=== PATIENT | female | born 1980 | race Two or more races ===

== ENCOUNTER 2016-08-12 16:50 | Observation (INO) | payer SELFPAY | END 2016-08-12 17:15 | disposition home or self-care (01) | DRG 782 | LOC: LDRP 16:50 | PROVIDERS: ADMIT Obstetrics & Gynecology; ATTEND Obstetrics & Gynecology | DX: O62.9 Abnormality of forces of labor, unspecified (principal); O48.0 Post-term pregnancy; Z3A.40 40 weeks gestation of pregnancy | CPT/HCPCS: 76818; G0378; 59025; 81002 ==

== ENCOUNTER 2019-02-18 00:11 | Observation (INO) | payer MEDICAID | END 2019-02-18 01:11 | disposition home or self-care (01) | DRG 566 | LOC: LDRP 00:11 | PROVIDERS: ADMIT Obstetrics & Gynecology; ATTEND Obstetrics & Gynecology | DX: O26.892 Other specified pregnancy related conditions, second trimester (principal); M54.5 Low back pain; M54.9 Dorsalgia, unspecified; N89.8 Other specified noninflammatory disorders of vagina; Z3A.25 25 weeks gestation of pregnancy | CPT/HCPCS: 59025; 81002; G0378 ==

== ENCOUNTER 2019-03-16 11:40 | Observation (INO) | payer MEDICAID ==
[2019-03-16] MEDS ORDERED: LACTATED RINGER'S 1,000 ML IV ONE (14:02)
[2019-03-16] MEDS ORDERED: TERBUTALINE SULFATE 1 MG/ML 1ML VIAL SC ONE ×2 (14:09→14:15)
[2019-03-16] MEDS ORDERED: PREN-129 OR (15:02)
== END 2019-03-16 15:55 | disposition home or self-care (01) | DRG 815 ==
LOC: LDRP 11:40
PROVIDERS: ADMIT Specialist; ATTEND Specialist
DX: Z04.3 Encounter for examination and observation following other accident (principal); O09.523 Supervision of elderly multigravida, third trimester; Z3A.29 29 weeks gestation of pregnancy
CPT/HCPCS: 59025; 76815; 81002; 96372; G0378; J3105; 96360

== ENCOUNTER 2019-03-16 16:09 | Emergency (ER) | payer MEDICAID ==
[~2019-03-16] VITALS: Ht 157.5 cm; Wt 71.2 kg
[~2019-03-16 16:09] MED LIST: PREN-129 OR
[2019-03-16 16:20] VITALS: BP 119/50
== END 2019-03-16 16:23 | disposition left against medical advice (07) ==
LOC: ER 16:09
DX: Z04.1 Encounter for examination and observation following transport accident (principal); Z53.21 Procedure and treatment not carried out due to patient leaving prior to being seen by health care provider

== ENCOUNTER 2019-05-11 05:25 | Inpatient (IN) | payer MEDICAID ==
[~2019-05-11] VITALS: Ht 157.5 cm; Wt 74.8 kg
[2019-05-11] MEDS ORDERED: LACTATED RINGER'S 1,000 ML IV SCH ×2 (06:33→07:17)
[2019-05-11] MEDS ORDERED: DERMOPLAST 60ML BOTTLE TOP PRN (06:45)
[2019-05-11] MEDS ORDERED: LIDOCAINE 2%HCL (LOCAL ANESTH.) INJ 20ML MDV ID ONE (06:45)
[2019-05-11] MEDS ORDERED: WITCH HAZEL-GLYCERIN PAD TOP PRN (06:45)
[2019-05-11] MEDS ORDERED: LIDOCAINE 1% (LOCAL ANESTH.) PF 5ml SDV IJ ONE (06:45)
[2019-05-11] MEDS ORDERED: PHISODERM TOP SOLN 240ML BTL TOP PRN (06:45)
[2019-05-11] MEDS ORDERED: PENICILLIN G POT 5MIL/D5 50ML 50 ML IV ONE (06:45)
[2019-05-11] MEDS ORDERED: NALBUPHINE HCL 10 MG/1ml INJECTION IV PRN (06:45)
[2019-05-11] MEDS ORDERED: CARBOPROST TROMETHAMINE 250 MCG/1ML VIAL IM PRN (06:45)
[2019-05-11] MEDS ORDERED: METHYLERGONOVINE MALEATE 0.2 MG/ML AMP IM PRN (06:45)
[2019-05-11] MEDS ORDERED: LACT. RINGERS/OXYTOCIN 20UNITS 1,000 ML IV SCH (07:17)
[2019-05-11 07:26] LABS: Urine Bacteria NONE SEEN /hpf (None Seen); Urine Blood Negative /uL (Negative); Urine Mucus FEW (None Seen); Urine Specific Gravity 1.014 (1.001-1.035); Urine WBC 1 /hpf (0 - 5)
[2019-05-11] MEDS ORDERED: TERBUTALINE SULFATE 1 MG/ML 1ML VIAL SC ONE (07:30)
[2019-05-11 07:39] LABS: Basophils # (auto) 0.1 uL; Basophils % (auto) 0.7 % (0.0-2.0); Eosinophils # (auto) 0.1 uL; Eosinophils % (auto) 0.7 % (0.0-7.0); Hematocrit 40.4 % (36.0-46.0); Hemoglobin 13.9 g/dL (12.2-16.2); Lymphocytes # (auto) 1.4 uL; Lymphocytes % (auto) 14.2 % (10.0-50.0); Mean Corpuscular Hemoglobin 32.3 pg (28.0-32.0); Mean Corpuscular Hgb Conc. 34.3 g/dL (32.0-36.0); Mean Corpuscular Volume 94.3 fL (80.0-100.0); Monocytes # (auto) 0.5 uL; Monocytes % (auto) 4.7 % (0.0-12.0); Neutrophils # (auto) 7.9 uL; Neutrophils % (auto) 79.7 % (37.0-80.0); Platelet Count (auto) 162 10^3/uL (140-450); Red Blood Cells 4.29 10^6/uL (4.0-5.20); Red Cell Distribution Width 13.9 % (11.8-14.3); White Blood Cell 9.9 10^3/uL (4.4-10.8)
[2019-05-11] MEDS: PENICILLIN G POTASSIUM 2,500,000 UNITS in D5W 5% 50 ML IV SCH ×3 (07:44→11:13)
[2019-05-11 07:47] LABS: Albumin 2.7 g/dL (3.4-5.0); Calcium 8.1 mg/dL (8.5-10.1); Potassium 3.7 mmol/L (3.5-5.1)
[2019-05-11 07:48] LABS: Alcohol, Urine < 3.0 mg/dL (0-5); Amphetamine Screen, Urine NEGATIVE (NEGATIVE); Barbiturate Scree,Urine NEGATIVE (NEGATIVE); Benzodiazephine Screen, Urine NEGATIVE (NEGATIVE); Cannabinoid Screen, Urine NEGATIVE (NEGATIVE); Cocaine Screen, Urine NEGATIVE (NEGATIVE); Opiate Scree,Urine NEGATIVE (NEGATIVE); Phencyclidine Screen, Urine NEGATIVE (NEGATIVE)
[2019-05-11 07:49] LABS: BUN/Creatinine Ratio 15.5
[2019-05-11 07:51] LABS: Bilirubin, Total 0.1 mg/dL (0.2-1.0); Total Protein 7.2 g/dL (6.4-8.2)
[2019-05-11 07:56] LABS: INR < 0.93 (0.9-1.15); Partial Thromboplastin Time 26.5 sec (23.64-32.05)
[2019-05-11] MEDS: LACT. RINGERS/OXYTOCIN 20UNITS 1,000 ML IV SCH ×2 (08:07→12:50)
[2019-05-11] MEDS ORDERED: IBUPROFEN 600 MG TAB PO PRN (12:15)
[2019-05-11 15:20] VITALS: BP 120/62
[2019-05-11 18:30] VITALS: BP 119/61
--- NOTE | 2019-05-11 19:30 | NUR ---
and formula teaching: Reviewed information in [facility] booklet with patient. Discussed benefits of and risks associated with not . Discussed different positions and feeding cues. All questions and concerns addressed at this time. Patient verbalized understanding of information.
[2019-05-11 22:52] VITALS: BP 106/57
[2019-05-12 03:00] VITALS: BP 110/60
--- NOTE | 2019-05-12 06:15 | NUR ---
REPORT RECEIVED FROM RICK HOLGUIN RN. WILL RESUME CARE OF PT.
[2019-05-12 07:00] VITALS: BP 114/73
[2019-05-12 10:27] LABS: RPR Non Reactive (Non Reactive)
[2019-05-12 10:45] VITALS: BP 113/68
--- NOTE | 2019-05-12 13:00 | NUR ---
CAKE GIVEN TO MOTHER
--- NOTE | 2019-05-12 13:20 | NUR ---
Discharge: Discharge instructions given as ordered. Pt encouraged to follow up with RUG RENOVATOR as instructed. All questions and concerns addressed. Patient verbalized understanding. Medication reconciliation completed and copy given to patient. All required/requested vaccines given and copies of vaccinations given to patient. Patient encouraged to prepare to depart unit.
--- NOTE | 2019-05-12 14:25 | NUR ---
IV removal IV DC'd with clean sterile technique, catheter fully intact. Pressure dressing applied to site. Patient tolerated well.
--- NOTE | 2019-05-12 14:40 | NUR ---
Discharge: Patient taken to vehicle via wheelchair with all personal belongings, accompanied by staff and family member. No distress noted at time of departure, no adverse changes in status since initial assessment.
== END 2019-05-12 14:40 | disposition home or self-care (01) | DRG 560 ==
LOC: OBSVTOIN 05:25 → LDRP 05:25
PROVIDERS: ADMIT Specialist; ATTEND Specialist
PROC: 10E0XZZ Delivery of Products of Conception, External Approach (ICD-10-PCS; principal; 2019-05-11)
DX: O42.92 Full-term premature rupture of membranes, unspecified as to length of time between rupture and onset of labor (principal); Z37.0 Single live birth; Z3A.37 37 weeks gestation of pregnancy
CPT/HCPCS: 36415; 59025; 59409; 80053; 80307; 81001; 81002; 84112; 85025; 85610; 85730; 86592; 86850; 86900; 86901; 96361; 96365; 96366; G0378; J2540; J2590; J7060

== ENCOUNTER 2019-07-27 15:25 | Emergency (ER) | payer MEDICAID ==
[~2019-07-27] VITALS: Ht 157.5 cm; Wt 63.5 kg
[2019-07-27 16:35] LABS: Urine Bacteria FEW /hpf (None Seen); Urine Blood Negative /uL (Negative); Urine Mucus FEW (None Seen); Urine Specific Gravity 1.019 (1.001-1.035); Urine WBC 14 /hpf (0 - 5)
[2019-07-27 18:36] LABS: Basophils # (auto) 0.1 uL; Basophils % (auto) 0.9 % (0.0-2.0); Eosinophils # (auto) 0.2 uL; Eosinophils % (auto) 2.7 % (0.0-7.0); Hematocrit 42.3 % (36.0-46.0); Hemoglobin 14.2 g/dL (12.2-16.2); Lymphocytes # (auto) 2.3 uL; Lymphocytes % (auto) 29.9 % (10.0-50.0); Mean Corpuscular Hemoglobin 30.9 pg (28.0-32.0); Mean Corpuscular Hgb Conc. 33.6 g/dL (32.0-36.0); Mean Corpuscular Volume 91.9 fL (80.0-100.0); Monocytes # (auto) 0.4 uL; Monocytes % (auto) 5.5 % (0.0-12.0); Neutrophils # (auto) 4.6 uL; Platelet Count (auto) 229 10^3/uL (140-450); Red Cell Distribution Width 13.6 % (11.8-14.3); White Blood Cell 7.5 10^3/uL (4.4-10.8)
[2019-07-27 18:54] LABS: Albumin 4.3 g/dL (3.4-5.0); Anion Gap 7 (5-15); Blood Urea Nitrogen 9 mg/dL (7-18); Calcium 9.2 mg/dL (8.5-10.1); Carbon Dioxide 29 mmol/L (21-32); Chloride 106 mmol/L (98-107); Glucose 87 mg/dL (74-106); Potassium 3.7 mmol/L (3.5-5.1); Sodium 142 mmol/L (136-145)
[2019-07-27 18:59] LABS: Alanine Aminotransferase 34 U/L (13-56); Alkaline Phosphatase 94 U/L (45-117); Aspartate Aminotransferase 17 U/L (15-37); BUN/Creatinine Ratio 11.8; Bilirubin, Total 0.2 mg/dL (0.2-1.0); GFR African American 110 mL/min; GFR Non-African American 91 mL/min; Total Protein 8.7 g/dL (6.4-8.2)
[2019-07-27 22:00] VITALS: BP 112/59
== END 2019-07-27 22:11 | disposition home or self-care (01) ==
LOC: ER 15:38
DX: F41.9 Anxiety disorder, unspecified (principal); N39.0 Urinary tract infection, site not specified
CPT/HCPCS: 36415; 71046; 80053; 81001; 84443; 84484; 85025; 93005

== ENCOUNTER 2020-11-28 01:54 | Emergency (ER) | payer MEDICAID ==
[~2020-11-28] VITALS: Ht 157.5 cm; Wt 72.6 kg
[2020-11-28 03:01] LABS: Basophils # (auto) 0 10 ^3/uL (0-0.2); Basophils % (auto) 0.8 % (0.0-2.0); Eosinophils # (auto) 0.1 10 ^3/uL (0-0.8); Eosinophils % (auto) 1.2 % (0.0-7.0); Hematocrit 41.1 % (36.0-46.0); Hemoglobin 13.8 g/dL (12.2-16.2); Lymphocytes # (auto) 0.8 10 ^3/uL (0.4-5.4); Lymphocytes % (auto) 15.8 % (10.0-50.0); Mean Corpuscular Hemoglobin 29.9 pg (28.0-32.0); Mean Corpuscular Hgb Conc. 33.7 g/dL (32.0-36.0); Mean Corpuscular Volume 88.8 fL (80.0-100.0); Monocytes # (auto) 0.3 10 ^3/uL (0-1.3); Monocytes % (auto) 6.3 % (0.0-12.0); Neutrophils # (auto) 3.9 10 ^3/uL (1.6-8.6); Neutrophils % (auto) 75.9 % (37.0-80.0); Nucleated Red Blood Cells % 0.1 %; Platelet Count (auto) 184 10^3/uL (140-450); Red Blood Cells 4.63 10^6/uL (4.0-5.20); Red Cell Distribution Width 13.6 % (11.8-14.3); White Blood Cell 5.1 10^3/uL (4.4-10.8)
[2020-11-28 03:03] LABS: Urine Amorphous Crystal FEW /hpf (None Seen); Urine Bacteria FEW /hpf (None Seen); Urine Blood Negative /uL (Negative); Urine Mucus FEW (None Seen); Urine Specific Gravity 1.024 (1.001-1.035); Urine WBC <1 /hpf (0 - 5)
[2020-11-28 03:13] LABS: Alanine Aminotransferase 34 U/L (13-56); Albumin 4.1 g/dL (3.4-5.0); Anion Gap 7 (5-15); Aspartate Aminotransferase 17 U/L (15-37); BUN/Creatinine Ratio 11.5; Blood Urea Nitrogen 9 mg/dL (7-18); Calcium 8.8 mg/dL (8.5-10.1); Carbon Dioxide 22 mmol/L (21-32); Chloride 106 mmol/L (98-107); GFR African American 105 mL/min; GFR Non-African American 87 mL/min; Glucose 112 mg/dL (74-106); Potassium 3.8 mmol/L (3.5-5.1); Sodium 135 mmol/L (136-145)
[2020-11-28 03:18] LABS: Alkaline Phosphatase 96 U/L (45-117); Bilirubin, Total 0.3 mg/dL (0.2-1.0); Total Protein 8.3 g/dL (6.4-8.2)
[2020-11-28] MEDS ORDERED: cefTRIAXone 1GM/50ML D5W 50 ML IV ONE (04:30)
[2020-11-28] MEDS ORDERED: KETOROLAC TROMETH 30 MG/ML 1ML VIAL IV ONE (04:45)
[2020-11-28] MEDS ORDERED: SODIUM CHLORIDE 0.9% 1,000 ML IV ONE (05:45)
[2020-11-28 06:28] VITALS: BP 110/62
== END 2020-11-28 07:10 | disposition home or self-care (01) ==
LOC: ER 01:56
DX: N39.0 Urinary tract infection, site not specified (principal)
CPT/HCPCS: 36415; 80053; 81001; 81025; 84484; 85025; 93005; 96361; 96365; 96375; 99285; J0696; J1885; J7030; J7050

== ENCOUNTER 2020-12-16 23:09 | Emergency (ER) | payer MEDICAID ==
[~2020-12-16] VITALS: Ht 157.5 cm; Wt 72.6 kg
[2020-12-17 03:03] VITALS: BP 141/92
== END 2020-12-17 03:03 | disposition home or self-care (01) ==
LOC: ER 23:09
DX: G44.209 Tension-type headache, unspecified, not intractable (principal); Z87.440 Personal history of urinary (tract) infections
CPT/HCPCS: 70450

== ENCOUNTER 2021-03-20 11:07 | Inpatient (IN) | payer MEDICAID ==
[~2021-03-20] VITALS: Ht 157.5 cm; Wt 68.7 kg
[2021-03-20 12:03] LABS: Basophils # (auto) 0 10 ^3/uL (0-0.2); Basophils % (auto) 0.5 % (0.0-2.0); Eosinophils # (auto) 0 10 ^3/uL (0-0.8); Eosinophils % (auto) 0.3 % (0.0-7.0); Hematocrit 45.3 % (36.0-46.0); Hemoglobin 15.2 g/dL (12.2-16.2); Lymphocytes # (auto) 0.9 10 ^3/uL (0.4-5.4); Mean Corpuscular Hemoglobin 29.1 pg (28.0-32.0); Mean Corpuscular Hgb Conc. 33.5 g/dL (32.0-36.0); Mean Corpuscular Volume 86.9 fL (80.0-100.0); Monocytes # (auto) 0.3 10 ^3/uL (0-1.3); Neutrophils # (auto) 3.4 10 ^3/uL (1.6-8.6); Neutrophils % (auto) 73.2 % (37.0-80.0); Red Blood Cells 5.22 10^6/uL (4.0-5.20); Red Cell Distribution Width 13.8 % (11.8-14.3); White Blood Cell 4.7 10^3/uL (4.4-10.8)
[2021-03-20 12:18] LABS: Albumin 3.8 g/dL (3.4-5.0); Anion Gap 9 (5-15); Aspartate Aminotransferase 27 U/L (15-37); BUN/Creatinine Ratio 8.7; Blood Urea Nitrogen 6 mg/dL (7-18); CRP High Sensitivity 0.21 mg/dL (< 0.3); Calcium 9.3 mg/dL (8.5-10.1); Carbon Dioxide 23 mmol/L (21-32); Chloride 109 mmol/L (98-107); GFR African American 121 mL/min; GFR Non-African American 100 mL/min; Glucose 119 mg/dL (74-106); Potassium 3.7 mmol/L (3.5-5.1); Sodium 141 mmol/L (136-145)
[2021-03-20 12:23] LABS: Alanine Aminotransferase 52 U/L (13-56); Alkaline Phosphatase 107 U/L (45-117); Bilirubin, Total 0.2 mg/dL (0.2-1.0); Total Protein 8.8 g/dL (6.4-8.2)
[2021-03-20] MEDS ORDERED: IOHEXOL 350 MG/ML 100ML IJ ONE (15:03)
[2021-03-20] MEDS ORDERED: AZITHROMYCIN 500MG/ 250ML 250 ML IV ONE (16:00)
[2021-03-20] MEDS ORDERED: cefTRIAXone 1GM/50ML D5W 50 ML IV ONE (16:00)
[2021-03-20] MEDS ORDERED: DexAMETHasone SOD PHOS 10MG/1ML VIAL INJ IV ONE (16:00)
[2021-03-20] MEDS ORDERED: ACETAMINOPHEN 500 MG TAB PO PRN (17:45)
[2021-03-20] MEDS ORDERED: NITROGLYCERIN 0.4 MG SL TAB SL PRN (17:45)
[2021-03-20] MEDS ORDERED: MORPHINE SULFATE INJECTION 2 MG/ML SYRG IV PRN (17:45)
[2021-03-20] MEDS: APIXABAN 5 MG TAB PO SCH (18:10)
[2021-03-20] MEDS: BUDESONIDE (INHALATION) 180 MCG IH IN SCH (21:55)
[2021-03-20] MEDS: DOXYCYCLINE 100 MG TAB/CAP PO SCH (22:36)
[2021-03-21] MEDS: APIXABAN 5 MG TAB PO SCH ×2 (06:16→18:29)
[2021-03-21 08:31] LABS: Urine Bacteria NONE SEEN /hpf (None Seen); Urine Blood Negative /uL (Negative); Urine Mucus FEW (None Seen); Urine Specific Gravity 1.029 (1.001-1.035); Urine WBC 2 /hpf (0 - 5)
[2021-03-21] MEDS: DOXYCYCLINE 100 MG TAB/CAP PO SCH ×2 (09:32→22:41)
[2021-03-21] MEDS: ASCORBIC ACID 1,000 MG TAB PO SCH (09:32)
[2021-03-21] MEDS: CHOLECALCIFEROL (VITD3) 2,000 UNIT CAP/TAB PO SCH (09:32)
[2021-03-21] MEDS: ZINC SULFATE 220mg CAP or TAB PO SCH (09:32)
[2021-03-21] MEDS: DexAMETHasone SOD PHOS 10MG/1ML VIAL INJ IV SCH (09:33)
[2021-03-21] MEDS ORDERED: IVERMECTIN 3 MG TAB PO SCH (10:00)
[2021-03-21 12:01] VITALS: BP 128/82
[2021-03-21] MEDS ORDERED: REMDESIVIR PER PHARMACY 0 ML IV SCH (12:30)
[2021-03-21] MEDS: BUDESONIDE (INHALATION) 180 MCG IH IN SCH ×2 (12:37→20:23)
[2021-03-21] MEDS: ALBUTEROL SULF HFA 90MCG INH 200DOSE IN PRN ×2 (12:38→20:23)
[2021-03-21] MEDS ORDERED: REMDESIVIR 200 MG in NS 210ml LOADING DOSE ADULT IV ONE (15:00)
[2021-03-21 22:00] VITALS: BP 122/68
[2021-03-22] VITALS (7 sets, daily range): BP systolic 117–123; BP diastolic 63–72
[2021-03-22] MEDS: APIXABAN 5 MG TAB PO SCH ×2 (05:47→18:00)
[2021-03-22] MEDS: ASCORBIC ACID 1,000 MG TAB PO SCH (10:13)
[2021-03-22] MEDS: DOXYCYCLINE 100 MG TAB/CAP PO SCH ×2 (10:13→21:55)
[2021-03-22] MEDS: ZINC SULFATE 220mg CAP or TAB PO SCH (10:13)
[2021-03-22] MEDS: DexAMETHasone SOD PHOS 10MG/1ML VIAL INJ IV SCH (10:13)
[2021-03-22] MEDS: CHOLECALCIFEROL (VITD3) 2,000 UNIT CAP/TAB PO SCH (10:13)
[2021-03-22] MEDS: BUDESONIDE (INHALATION) 180 MCG IH IN SCH ×2 (10:32→22:00)
[2021-03-22] MEDS: ALBUTEROL SULF HFA 90MCG INH 200DOSE IN PRN ×2 (10:33→22:37)
[2021-03-22] MEDS ORDERED: MECLIZINE HCL 25 MG TAB PO ONE (13:45)
[2021-03-22] MEDS: REMDESIVIR 100mg 100 MG in SODIUM CHL 0.9% 230 ML IV SCH (15:42)
[2021-03-22] MEDS ORDERED: MECLIZINE HCL 25 MG TAB PO PRN (22:00)
[2021-03-23 05:14] VITALS: BP 108/68
[2021-03-23] MEDS: APIXABAN 5 MG TAB PO SCH ×2 (05:43→17:52)
[2021-03-23] MEDS: BUDESONIDE (INHALATION) 180 MCG IH IN SCH (06:56)
[2021-03-23] MEDS: ALBUTEROL SULF HFA 90MCG INH 200DOSE IN PRN (06:56)
[2021-03-23 08:00] VITALS: BP 120/81
[2021-03-23 09:00] VITALS: BP 120/81
[2021-03-23] MEDS: ZINC SULFATE 220mg CAP or TAB PO SCH (09:57)
[2021-03-23] MEDS: DexAMETHasone SOD PHOS 10MG/1ML VIAL INJ IV SCH (09:57)
[2021-03-23] MEDS: ASCORBIC ACID 1,000 MG TAB PO SCH (09:57)
[2021-03-23] MEDS: DOXYCYCLINE 100 MG TAB/CAP PO SCH (09:57)
[2021-03-23] MEDS: CHOLECALCIFEROL (VITD3) 2,000 UNIT CAP/TAB PO SCH (09:58)
[2021-03-23 13:00] VITALS: BP 110/69
[2021-03-23] MEDS: REMDESIVIR 100mg 100 MG in SODIUM CHL 0.9% 230 ML IV SCH (15:41)
[2021-03-23 17:00] VITALS: BP 118/67
[2021-03-27] MEDS ORDERED: APIXABAN 5 MG TAB PO SCH (18:00)
== END 2021-03-23 18:30 | disposition home or self-care (01) | DRG 137 ==
LOC: ER 11:07 → TELE 17:43 → TELE-EAST 03-21 20:00
PROVIDERS: ADMIT Nurse Practitioner Acute Care; ATTEND Internal Medicine
PROC: XW033E5 Introduction of Remdesivir Anti-infective into Peripheral Vein, Percutaneous Approach, New Technology Group 5 (ICD-10-PCS; principal; 2021-03-21)
DX: U07.1 COVID-19 (principal); J96.00 Acute respiratory failure, unspecified whether with hypoxia or hypercapnia; J12.82 Pneumonia due to coronavirus disease 2019; I26.94 Multiple subsegmental thrombotic pulmonary emboli without acute cor pulmonale
CPT/HCPCS: 36415; 71045; 71275; 80053; 81001; 82728; 84484; 85025; 85379; 86141; 87426; 93970; 94640; 96365; 96368; 96375; G0378; J0696; J1100

== ENCOUNTER 2021-04-03 12:22 | Emergency (ER) | payer MEDICAID ==
[~2021-04-03] VITALS: Ht 157.5 cm; Wt 70.3 kg
[2021-04-03 14:10] LABS: INR 0.98 (0.9-1.15); Partial Thromboplastin Time 25.4 sec (23.6-33.0)
[2021-04-03 14:26] LABS: Basophils # (auto) 0.1 10 ^3/uL (0-0.2); Basophils % (auto) 0.7 % (0.0-2.0); Eosinophils # (auto) 0.2 10 ^3/uL (0-0.8); Eosinophils % (auto) 1.5 % (0.0-7.0); Hematocrit 39.5 % (36.0-46.0); Hemoglobin 13.2 g/dL (12.2-16.2); Lymphocytes # (auto) 1.8 10 ^3/uL (0.4-5.4); Lymphocytes % (auto) 17.6 % (10.0-50.0); Mean Corpuscular Hgb Conc. 33.3 g/dL (32.0-36.0); Monocytes # (auto) 0.5 10 ^3/uL (0-1.3); Neutrophils # (auto) 7.8 10 ^3/uL (1.6-8.6); Neutrophils % (auto) 75.2 % (37.0-80.0); Nucleated Red Blood Cells % 0.1 %; Red Blood Cells 4.39 10^6/uL (4.0-5.20); Red Cell Distribution Width 14.8 % (11.8-14.3); White Blood Cell 10.4 10^3/uL (4.4-10.8)
[2021-04-03 14:31] LABS: Calcium 8.2 mg/dL (8.5-10.1); Potassium 3.4 mmol/L (3.5-5.1)
[2021-04-03 14:35] LABS: BUN/Creatinine Ratio 22.5; Bilirubin, Total 0.4 mg/dL (0.2-1.0); Total Protein 6.6 g/dL (6.4-8.2)
[2021-04-03] MEDS ORDERED: KETOROLAC TROMETH 30 MG/ML 1ML VIAL IV ONE (15:00)
[2021-04-03] MEDS ORDERED: POTASSIUM EFFERVESENT TAB 25 MEQ PO ONE (15:15)
[2021-04-03 17:17] VITALS: BP 119/46
== END 2021-04-03 17:30 | disposition home or self-care (01) ==
LOC: ER 12:24
DX: M54.5 Low back pain (principal); M48.061 Spinal stenosis, lumbar region without neurogenic claudication; M54.16 Radiculopathy, lumbar region; E87.6 Hypokalemia; E46 Unspecified protein-calorie malnutrition; Z68.28 Body mass index [BMI] 28.0-28.9, adult; Z79.899 Other long term (current) drug therapy
CPT/HCPCS: 36415; 71045; 72131; 80053; 85025; 85379; 85610; 85730; 93005; 96374; 99285; J1885

== ENCOUNTER 2021-08-08 12:39 | Emergency (ER) | payer MEDICAID ==
[~2021-08-08] VITALS: Ht 157.5 cm; Wt 70.8 kg
[2021-08-08 12:59] VITALS: BP 144/75
[2021-08-08] MEDS ORDERED: ACETAMINOPHEN 500 MG TAB PO ONE (13:45)
[2021-08-08] MEDS ORDERED: IBUP800T27 PO (14:01)
== END 2021-08-08 14:20 | disposition home or self-care (01) ==
LOC: ER 12:43
DX: G44.209 Tension-type headache, unspecified, not intractable (principal)
CPT/HCPCS: 70450

== ENCOUNTER 2021-12-05 23:29 | Emergency (ER) | payer MEDICAID ==
[~2021-12-05] VITALS: Ht 157.5 cm; Wt 65.8 kg
[~2021-12-05 23:29] MED LIST changes: +IBUP800T27 PO
[2021-12-06 01:43] LABS: Basophils # (auto) 0.1 10 ^3/uL (0-0.2); Eosinophils # (auto) 0.1 10 ^3/uL (0-0.8); Monocytes # (auto) 0.5 10 ^3/uL (0-1.3); Neutrophils # (auto) 4.2 10 ^3/uL (1.6-8.6)
[2021-12-06 01:45] LABS: Basophils % (auto) 0.8 % (0.0-2.0); Eosinophils % (auto) 1.8 % (0.0-7.0); Hematocrit 30.7 % (36.0-46.0); Hemoglobin 9.8 g/dL (12.2-16.2); Lymphocytes # (auto) 2.2 10 ^3/uL (0.4-5.4); Mean Corpuscular Hemoglobin 25.4 pg (28.0-32.0); Mean Corpuscular Volume 79.5 fL (80.0-100.0); Monocytes % (auto) 6.5 % (0.0-12.0); Neutrophils % (auto) 59.9 % (37.0-80.0); Nucleated Red Blood Cells % 0.2 %; Red Blood Cells 3.85 10^6/uL (4.0-5.20); Red Cell Distribution Width 15.1 % (11.8-14.3); White Blood Cell 7.1 10^3/uL (4.4-10.8)
[2021-12-06 01:59] LABS: BUN/Creatinine Ratio 19.1; Calcium 8.6 mg/dL (8.5-10.1); Magnesium 2.2 mg/dL (1.6-2.6); Potassium 3.8 mmol/L (3.5-5.1)
[2021-12-06] MEDS ORDERED: MECLIZINE HCL 25 MG TAB PO ONE ×2 (03:00→05:00)
[2021-12-06] MEDS ORDERED: HYDROcodone-ACET 5/325MG TAB PO ONE (03:00)
[2021-12-06] MEDS ORDERED: METOCLOPRAMIDE HCL 5MG/ml INJ 2ml VIAL IM ONE (05:15)
[2021-12-06 05:34] VITALS: BP 122/70
== END 2021-12-06 05:36 | disposition home or self-care (01) ==
LOC: ER 23:29
DX: R42 Dizziness and giddiness (principal); G44.209 Tension-type headache, unspecified, not intractable
CPT/HCPCS: 36415; 80048; 83735; 83880; 84484; 84702; 85025; 93005; 96372

== ENCOUNTER 2022-02-04 23:32 | Emergency (ER) | payer MEDICAID ==
[~2022-02-04] VITALS: Ht 157.5 cm; Wt 63.6 kg
[2022-02-05 00:09] LABS: Urine Bacteria FEW /hpf (None Seen); Urine Blood Negative /uL (Negative); Urine Specific Gravity 1.006 (1.001-1.035); Urine WBC 4 /hpf (0 - 5)
[2022-02-05] MEDS ORDERED: metroNIDAZOLE 500 MG TAB PO ONE (03:45)
[2022-02-05] MEDS ORDERED: FLUCONAZOLE 100 MG TAB PO ONE (03:45)
[2022-02-05] MEDS ORDERED: ONDANSETRON ODT 4 MG TAB PO ONE (03:45)
[2022-02-05 04:25] VITALS: BP 123/70
== END 2022-02-05 04:31 | disposition home or self-care (01) ==
LOC: ER 23:32
DX: N89.8 Other specified noninflammatory disorders of vagina (principal); Z79.1 Long term (current) use of non-steroidal anti-inflammatories (NSAID); Z79.899 Other long term (current) drug therapy
CPT/HCPCS: 81001; 81025; 99283; Q0162

== ENCOUNTER 2022-09-24 19:20 | Emergency (ER) | payer MEDICAID ==
[~2022-09-24] VITALS: Ht 157.5 cm; Wt 69.8 kg
[2022-09-24 20:22] LABS: Basophils # (auto) 0.1 10 ^3/uL (0-0.2); Basophils % (auto) 0.8 % (0.0-2.0); Eosinophils # (auto) 0.2 10 ^3/uL (0-0.8); Eosinophils % (auto) 1.9 % (0.0-7.0); Hematocrit 34.8 % (36.0-46.0); Hemoglobin 12.3 g/dL (12.2-16.2); Lymphocytes # (auto) 2.1 10 ^3/uL (0.4-5.4); Lymphocytes % (auto) 23.3 % (10.0-50.0); Mean Corpuscular Hemoglobin 30.7 pg (28.0-32.0); Mean Corpuscular Hgb Conc. 35.4 g/dL (32.0-36.0); Mean Corpuscular Volume 86.7 fL (80.0-100.0); Monocytes # (auto) 0.6 10 ^3/uL (0-1.3); Monocytes % (auto) 6.4 % (0.0-12.0); Neutrophils # (auto) 6.1 10 ^3/uL (1.6-8.6); Neutrophils % (auto) 67.6 % (37.0-80.0); Nucleated Red Blood Cells % 0.1 %; Red Blood Cells 4.01 10^6/uL (4.0-5.20); Red Cell Distribution Width 15.5 % (11.8-14.3)
[2022-09-24 20:34] LABS: Albumin 3.1 g/dL (3.4-5.0); BUN/Creatinine Ratio 21.1 (10.0-20.0); Calcium 8.6 mg/dL (8.5-10.1); Potassium 3.9 mmol/L (3.5-5.1)
[2022-09-24 20:38] LABS: Bilirubin, Total 0.2 mg/dL (0.2-1.0)
[2022-09-24 21:58] LABS: Urine Bacteria FEW /hpf (None Seen); Urine Blood Negative /uL (Negative); Urine Specific Gravity 1.004 (1.001-1.035); Urine WBC <1 /hpf (0 - 5)
[2022-09-25] MEDS ORDERED: DexAMETHasone SOD PHOS 10MG/1ML VIAL INJ IM ONE (07:15)
[2022-09-25] MEDS ORDERED: NITROFURANTOIN 100 mg CAP PO ONE (07:15)
[2022-09-25 08:32] VITALS: BP 110/70
== END 2022-09-25 08:35 | disposition home or self-care (01) ==
LOC: ER 19:20
DX: O23.42 Unspecified infection of urinary tract in pregnancy, second trimester (principal); O26.891 Other specified pregnancy related conditions, first trimester; N39.0 Urinary tract infection, site not specified; I26.99 Other pulmonary embolism without acute cor pulmonale; M54.50 Low back pain, unspecified; Z3A.24 24 weeks gestation of pregnancy
CPT/HCPCS: 36415; 80053; 81001; 84484; 85025; 85379; 93005; 96372; 99284; J1100

== ENCOUNTER 2025-02-05 12:42 | Inpatient (IN) | payer MEDICAID ==
[~2025-02-05] VITALS: Ht 157.5 cm; Wt 69.5 kg
[~2025-02-05 12:42] MED LIST changes: +IBUP-1456 PO; -IBUP800T27 PO
--- NOTE | 2025-02-05 13:58 | ED.PDOC ---
History of Present Illness HPI Comments 44 y/o F, with PMhx of PE and UTI's presents to the ED for CC of headache. Patient states, she has been having a headache with associated neck stiffness [id number]. Patient denies blurred vision, dizziness, nausea, vomiting, or recent increased stress. No other symptoms or modifying factors are present at this time. Chief Complaint: Headache Time Seen by MD: 13:50 Primary Care Provider: DENIES HAVING PMD AT THIS TIME Reviewed Notes: Nurses Notes, Medications, Allergies Allergies: Coded Allergies: Nitrofurantoin (Verified Allergy, Severe, RASH, 09/24/22) Home Meds Active Scripts Ibuprofen (Ibuprofen) 800 Mg Tab, 800 MG PO Q8HP PRN for 10 Days, #30 TAB Prov:IGNACIA BENAVIDEZ 08/08/21 Reported Medications Vit W/ Ferrous Fumara () Tab, 1 OR, TAB 03/16/19 Information Source: Patient Mode of Arrival: Ambulatory Severity: Moderate Timing: Weeks Duration: Since onset Prehospital treatment: None Past Medical History PAST MEDICAL HISTORY: PE, UTI'S Surgical History: Denies all surgeries ACCESS CLERK History: No Pertinent ACCESS CLERK History Family History Family History: Reviewed,noncontributory to illness Social History Smoker: Non-Smoker Alcohol: Denies ETOH Use Drugs: Denies Drug Use Lives In: Home Constitutional: denies: chills, diaphoresis, fatigue, fever, malaise, sweats, weakness, others EENTM: denies: blurred vision, double vision, ear bleeding, ear discharge, ear drainage, ear pain, ear ringing, eye pain, eye redness, hearing loss, mouth pain, mouth swelling, nasal discharge, nose bleeding, nose congestion, nose pain, photophobia, tearing, throat pain, throat swelling, voice changes, others Respiratory: denies: cough, hemoptysis, orthopnea, SOB at rest, shortness of breath, SOB with excertion, stridor, wheezing, others Cardiovascular: denies: chest pain, dizzy spells, diaphoresis, Dyspnea on exertion, edema, irregular heart beat, left arm pain, lightheadedness, pal pitations, PND, syncope, others Gastrointestinal: denies: abdomen distended, abdominal pain, blood streaked bowels, constipated, diarrhea, dysphagia, difficulty swallowing, hematemesis, melena, nausea, poor appetite, poor fluid intake, rectal bleeding, rectal pain, vomiting, others Genitourinary: denies: abnormal vagina bleeding, burning, dyspareunia, dysuria, flank pain, frequency, hematuria, incontinence, pain, , vagina discharge, urgency, others Neurological: reports: headache; denies: dizziness, fainting, left sided numbness, left sided weakness, numbness, paresthesia, pre-existing deficit, right sided numbness, right sided weakness, seizure, speech problems, tingling, tremors, weakness, others Musculoskeletal: reports: neck pain; denies: back pain, gout, joint pain, joint swelling, muscle pain, muscle stiffness, others Integumetry: denies: bruises, change in color, change in hair/nails, dryness, laceration, lesions, lumps, rash, wounds, others Allergic/Immunocompromised: denies: Difficulty Healing, Frequent Infections, Hives, Itching, others Hematologic/Lymphatic: denies: anemia, blood clots, easy bleeding, easy bruising, swollen glands, others Endocrine: denies: excessive hunger, excessive sweating, excessive thirst, excessive urination, flushing, intolerance to cold, intolerance to heat, unexplained weight gain, unexplained weight loss, others Psychiatric: denies: anxiety, bipolar disorder, depression, hopeless, panic disorder, schizophrenia, sleepless, suicidal, others All Other Systems: Reviewed and Negative Physical Exam General Appearance: Moderate Distress HEENT: Normal ENT Inspection, Pharynx Normal, TMs Normal Neck: Full Range of Motion, Non-Tender, Normal, Normal Inspection Respiratory: Chest Non-Tender, Lungs Clear, No Accessory Muscle Use, No Respiratory Distress, Normal Breath Sounds Cardiovascular: No Edema, No JVD, No Murmur, No Gallop, Normal Peripheral Pulse s, Regular Rate/Rhythm Breast Exam: Deferred Gastrointestinal: No Organomegaly, Non Tender, No Pulsatile Mass, Normal Bowel Sounds, Soft Genitalia: Deferred Pelvic: Deferred Rectal: Deferred Extremities: No calf tenderness, Normal capillary refill, Normal inspection, Normal range of motion, Non-tender, No pedal edema Musculoskeletal : Apperance: Normal Neurologic: Alert, conveyor system operator II-XII nml as Tested, No Motor Deficits, Normal Affect, Normal Mood, No Sensory Deficits Cerebellar Function: Normal Reflexes: Normal Skin: Dry, Normal Color, Warm Peripheral Pulses: 3+ Radial (R), 3+ Radial (L) Lymphatic: No Adenopathy Was a procedure done? Was a procedure done?: No Differential Dx Considerations may include: MIGRAINE HEADACHE, GENERALIZED HEADACHE, MUSCLE STRAIN, ARTHRITIS X-Ray, Labs, Meds, VS Vital Signs Date Time Temp Pulse Resp B/P (MAP) Pulse Ox O2 Delivery O2 Flow Rate FiO2 02/05/25 12:47 98.4 84 16 134/81 99 98.4 [place] [address] Ph: [phone] DIAGNOSTIC IMAGING Diagnostic Imaging Report : [id number] Signed PATIENT: JAREK CHOU ACCT: [id number] UNIT: [id number] : 1980 LOC: ER ROOM / BED: / AGE / SEX: 44 / F ADM STATUS: REG ER SERVICE 1346 ORDERING PHYSICIAN: CARMEN YAÑEZ MD PROCEDURE(s): HWOCT - HEAD WITHOUT CONTRAST REASON: headache ORDER NUMBER(s): [id number], ACCESSION NUMBER(s): [id number] EXAM DESCRIPTION: CT HEAD WITHOUT CONTRAST CLINICAL HISTORY: headache COMPARISON: HEAD WITHOUT CONTRAST on DOS: 08/08/21 TECHNIQUE: Noncontrast CT head was performed. Coronal MPR images were generated. CTDI/ DLP = 50.24 / 803.84. Dose reduction technique with one or more of the following methods was performed: Automated exposure control, adjustment of the mA and/or kV according to patient size, use of iterative reconstruction [place]. FINDINGS: No evidence of acute intracranial hemorrhage. No mass effect. No extra-axial collections of fluid or blood. The brain is normal in attenuation. The ventricles and sulci are normal in size for age. Clear basal cisterns. The calvarium is intact. The soft tissues are unremarkable. The paranasal sinuses and mastoid air cells are clear. IMPRESSION: 1. No acute intracranial findings. ATED BY: YELITZA CRUZ MD DICTATED DATE/TIME: 02/05/251412 SIGNED BY: YELITZA CRUZ MD SIGNED DATE/TIME: 08/03/25 1413 CC: Patient alert. No sign of distress. CT of the head reviewed does not show any acute process. Vitals stable. Able to move her neck without difficulty. Able to flex her neck. No stiff neck. No cough. Skin color within normal limits. Physical examination pristine. Possibly stress induced. Explained to the patient that she will need neurology consultation. She was seen at [facility] but did not do anything. No acute process. Possibly will need procedure if she does not get better. No criteria for any procedure at this moment. She has good muscle strength. Ambulating without difficulty. Walking on a straight line without difficulty. Good vision. Lights do not bother her. Good muscle tone. Was given prescription of [place] Explained to the patient. Was told to follow up with her primary care physician. Was told to come back if there is any problem. She insists on staying. Possibly will need a lumbar puncture. Continue monitoring. Time of 1ST Reevaluation: 14:20 Reevaluation 1ST: Improved Time of 2ND Reevaluation: 15:50 Reevaluation 2ND: Improved Patient Education/Counseling: Diagnosis, Treatment Family Education/Counseling: No Family Present SEPSIS Sepsis Screen Date sepsis recognized/suspect: Feb 05, 2025 Time Sepsis recognized/suspect: 1247 Recent Procedure: No On Antibiotic Therapy: No Respiratory Rate >20: No Heart Rate >90: No Temp<36 C (96.8 F) or >38.3 C: No SBP <90 or MAP <65 mmHG: No New Acute Mental Status Change: No Is the patient on CPAP, BIPAP,: No Physician Orders Head Without Contrast (02/05/25 13:46) Vital Signs Date Time Temp Pulse Resp B/P (MAP) Pulse Ox O2 Delivery O2 Flow Rate FiO2 02/05/25 12:47 98.4 84 16 134/81 99 98.4 Departure 1 Departure Time of Disposition: 15:52 Impression: Primary Impression: Tension headache Disposition: ADMITTED INPATIENT Admit to: Med Surg Condition: Guarded Critical Care Note Critical Care Time?: No Stability Stability form required: No Heart Score Heart Score: Heart Score Response (Comments) Value History N/A 0 EKG N/A 0 Age N/A 0 Risk Factors N/A 0 Troponin N/A 0 Total 0 I personally scribed for CARMEN YAÑEZ MD ([email or web address]) on 02/05/25 at 13:58. Electronically submitted by Sheela Duran ([email or web address]). I personally scribed for CARMEN YAÑEZ MD ([email or web address]) on 02/05/25 at 15:24. Electronically submitted by Sheela Duran ([email or web address]). CARMEN YAÑEZ MD Feb 05, 2025 13:58
--- NOTE | 2025-02-05 14:14 | DVH ---
EXAM DESCRIPTION: CT HEAD WITHOUT CONTRAST CLINICAL HISTORY: headache COMPARISON: HEAD WITHOUT CONTRAST on DOS: 08/08/21 TECHNIQUE: Noncontrast CT head was performed. Coronal MPR images were generated. CTDI/ DLP = 50.24 / 803.84. Dose reduction technique with one or more of the following methods was performed: Automated exposure control, adjustment of the mA and/or kV according to patient size, use of iterative reconstruction [place]. FINDINGS: No evidence of acute intracranial hemorrhage. No mass effect. No extra-axial collections of fluid or blood. The brain is normal in attenuation. The ventricles and sulci are normal in size for age. Clear basal cisterns. The calvarium is intact. The soft tissues are unremarkable. The paranasal sinuses and mastoid air cells are clear. IMPRESSION: 1. No acute intracranial findings.
[2025-02-05] MEDS: HYDROcodone-ACET 10/325MG TAB PO ONE (16:00)
[2025-02-05 16:46] LABS: Hemoglobin 10.8 g/dL (12.2-16.2); Nucleated Red Blood Cells % 0.0 %
[2025-02-05 16:49] LABS: Hematocrit 33.0 % (36.0-46.0); Mean Corpuscular Hemoglobin 24.7 pg (28.0-32.0); Mean Corpuscular Volume 75.9 fL (80.0-100.0)
[2025-02-05 16:55] LABS: Chloride 105 mmol/L (98-107); Potassium 3.9 mmol/L (3.5-5.1); Sodium 141 mmol/L (136-145)
[2025-02-05 16:56] LABS: Anion Gap 9 (5-15); Calcium 9.1 mg/dL (8.7-10.4); Carbon Dioxide 27 mmol/L (20-31)
[2025-02-05 17:01] LABS: BUN/Creatinine Ratio 14.1 (10.0-20.0); Blood Urea Nitrogen 10 mg/dL (9-23); Glucose 93 mg/dL (74-106)
[2025-02-05 17:08] LABS: INR 1.01 (0.9-1.15); Partial Thromboplastin Time 26.2 SEC (24.5-34.5); Prothrombin Time 10.7 sec (9.3-11.8)
[2025-02-05] MEDS: ONDANSETRON ODT 4 MG TAB PO ONE (18:06)
[2025-02-05] MEDS: SODIUM CHLORIDE 0.9% 1,500 ML IV ONE (22:15)
--- NOTE | 2025-02-05 23:06 | DVHHPRES ---
History of Present Illness Resident Creating Document: MARY GRIFFIN RESIDENT History of Present Illness Yue Ortiz is a 44 yo female with past medical history of PE (2019). The patient presented to the ED with chief complaint of 2 weeks of intermittent headache 7/10, diffused, pressure like. 1 week ago the headache starts irradiates to the back of the neck associated with dizziness, nausea. The headache exacerbates with loud noises and light, ibuprofen did not improved her symptoms. Today, the headache became unbearable 10/10, associated with neck pain and stiffness, nausea and vomit > 5 times that prompt her visit to the ED. In the initial evaluation, CT scan showed no acute intracranial findings and WBC within normal limits. The patient denies blurred vision, loss of consciousness, fever, chills, flu-like symptoms, recent travel, sick contacts or substances abuse. Cardiovascular: Other (Pulmonary embolism (2019)) Past Surgical History: None Family History: DM, Hypertension Smoke: No ALCOHOL: none Drugs: None Lives: with Family Review of Systems Constitutional: No: Fever, Chills, Sweats, Weakness, Malaise, Other Eyes: Other (Photphobia.); No: Pain, Vision change, Conjunctivae inflammation, Eyelid inflammation, Redness ENT: No: Ear pain, Ear discharge, Nose pain, Nose discharge, Nose congestion, Mouth pain, Mouth swelling, Throat pain, Throat swelling, Other Respiratory: No: Cough, Dry, Shortness of breath, SOB with excertion, Wheezing, Hemoptysis, Pleuritic Pain, Sputum, Wheezing, Other Cardiovascular: No: Chest Pain, Palpitations, Orthopnea, Paroxysmal Noc. Dyspnea, Edema, Lt Headedness, Other Gastrointestinal: Nausea, Vomiting; No: Abdominal Pain, Diarrhea, Constipation, Melena, Hematochezia, Other Genitourinary: No Dysuria, No Frequency, No Incontinence, No Hematuria, No Retention, No Other Musculoskeletal: other (Neck pain and stiffness), neck pain; No: shoulder pain, arm pain, back pain, hand pain, leg pain, foot pain Skin: No: Rash, Lesions, Jaundice, Bruising, Other Neurological: No: Weakness, Numbness, Incoordination, Change in speech, Confusion, Seizures, Other Allergies: Coded Allergies: Nitrofurantoin (Verified Allergy, Severe, RASH, 09/24/22) Medications Current Medications Medications Dose Ordered Sig/Hamilton Route Start Time Stop Time Status Last Admin Dose Admin Pantoprazole Sodium 40 mg DAILY PO 02/06/25 10:00 Ondansetron HCl 4 mg Q4HPRN IM 02/06/25 02:00 Exam Vital Signs Vital Signs Date Time Temp Pulse Resp B/P (MAP) Pulse Ox O2 Delivery O2 Flow Rate FiO2 02/05/25 21:50 98.0 71 14 151/76 (101) 98 98.0 02/05/25 16:05 Room Air General Appearance: Alert, Oriented X3, Cooperative, mild distress HEENT: Atraumatic, Mucous membr. moist/pink Respiratory: Clear to auscultation, Normal air movement Cardiovascular: Regular rate, Normal S1, Normal S2, No murmurs Abdominal: Normal bowel sounds, Soft, No tenderness, No hepatospenomegaly, No masses Extremities: No clubbing, No cyanosis, No edema, Normal pulses, No tenderness/swelling Skin: No rashes, No breakdown, No significant lesion Neuro: Normal gait, Normal speech, Strength at 5/5 X4 ext, Normal tone, Sensation intact, Cranial nerves 3-12 NL, Reflexes 2+, Other (Kernik negative, Brudzinski's negative, photophobia present. ) Psych/Mental Status: Mental status NL, Mood NL, Other Labs/Xrays Labs Test 02/05/25 16:20 Range/Units White Blood Count 7.6 4.4-10.8 10^3/uL Red Blood Count 4.35 4.0-5.20 10^6/uL Hemoglobin 10.8 L 12.2-16.2 g/dL Hematocrit 33.0 L 36.0-46.0 % Mean Corpuscular Volume 75.9 L 80.0-100.0 fL Mean Corpuscular Hemoglobin 24.7 L 28.0-32.0 pg Mean Corpuscular Hemoglobin Concent 32.6 32.0-36.0 g/dL Red Cell Distribution Width 18.7 H 11.8-14.3 % Platelet Count 342 140-450 10^3/uL Mean Platelet Volume 8.9 6.9-10.8 fL Neutrophils (%) (Auto) 59.8 37.0-80.0 % Lymphocytes (%) (Auto) 33.1 10.0-50.0 % Monocytes (%) (Auto) 5.4 0.0-12.0 % Eosinophils (%) (Auto) 1.0 0.0-7.0 % Basophils (%) (Auto) 0.7 0.0-2.0 % Neutrophils # (Auto) 4.5 1.6-8.6 10 ^3/uL Lymphocytes # (Auto) 2.5 0.4-5.4 10 ^3/uL Monocytes # (Auto) 0.4 0-1.3 10 ^3/uL Eosinophils # (Auto) 0.1 0-0.8 10 ^3/uL Basophils # (Auto) 0.1 0-0.2 10 ^3/uL Nucleated Red Blood Cells 0.0 % Prothrombin Time 10.7 9.3-11.8 sec Prothrombin Time INR 1.01 0.9-1.15 Activated Partial Thromboplast Time 26.2 24.5-34.5 SEC Sodium Level 141 136-145 mmol/L Potassium Level 3.9 3.5-5.1 mmol/L Chloride Level 105 98-107 mmol/L Carbon Dioxide Level 27 20-31 mmol/L Anion Gap 9 5-15 Blood Urea Nitrogen 10 9-23 mg/dL Creatinine 0.71 0.550-1.02 mg/dL Glomerular Filtration Rate Calc 107 >90 mL/min BUN/Creatinine Ratio 14.1 10.0-20.0 Serum Glucose 93 74-106 mg/dL Calcium Level 9.1 8.7-10.4 mg/dL SEPSIS Sepsis Screen Date sepsis recognized/suspect: Feb 05, 2025 Time Sepsis recognized/suspect: 1247 Recent Procedure: No On Antibiotic Therapy: No Respiratory Rate >20: No Heart Rate >90: No Temp<36 C (96.8 F) or >38.3 C: No SBP <90 or MAP <65 mmHG: No New Acute Mental Status Change: No Is the patient on CPAP, BIPAP,: No Physician Orders Urinalysis (02/05/25 15:55) * Radiologist Consult (02/05/25 15:55) Admit (02/05/25 22:02) Code Status (02/05/25 22:02) Vital Signs .PER UNIT PROTOCOL (02/05/25 22:02) Review Orders With Adm. (02/05/25 22:02) Bedrest With Bathroom Privileg (02/05/25 22:02) Regular Diet (02/06/25 Breakfast) Notify Md Of Changes From Base (02/05/25 22:02) Advance Directive (02/05/25 22:02) Patient Condition (02/05/25 22:02) Allergies (02/05/25 22:02) Pantoprazole Tablet (Protonix Tablet) (02/06/25 10:00) Sodium Chloride 0.9% (02/05/25 22:15) Blood Culture (02/05/25 22:02) Drug Screen (02/05/25 22:02) Complete Blood Count (02/06/25 04:00) Comprehensive Metabolic Panel (02/06/25 04:00) Ondansetron Hcl (Zofran) (02/06/25 02:00) Covid19 Antigen Vilma (02/05/25 ) Rapid Influenza A&B (02/05/25 22:19) Vital Signs Date Time Temp Pulse Resp B/P (MAP) Pulse Ox O2 Delivery O2 Flow Rate FiO2 02/05/25 21:50 98.0 71 14 151/76 (101) 98 98.0 02/05/25 16:05 98.6 66 16 127/77 (94) 98 98.6 02/05/25 16:05 66 16 98 Room Air Laboratory Tests Test 02/05/25 16:20 White Blood Count 7.6 10^3/uL (4.4-10.8) Medications Medications Dose Ordered Sig/Hamilton Route Start Time Stop Time Status Last Admin Dose Admin Acetaminophen/ Hydrocodone Bitart 1 tab ONCE ONCE PO 02/05/25 14:00 02/05/25 14:01 DC 02/05/25 16:00 1 TAB Ondansetron HCl 4 mg ONCE ONCE PO 02/05/25 18:15 02/05/25 18:16 DC 02/05/25 18:06 4 MG Assessment/Plan Assessment/Plan #Intractable headache #Rule out Migraine with aura #Rule out meningitis IV fluids Ketorolac IV Zofran 4mg po Blood culture Neurologic consult Possible need for Lumbar puncture #Dehydration IV Fluids NS #Anemia Sulfate ferrous 375mg po qd Full liquid diet DVT prophylaxis PUD prophylaxis Protonic Goals of care discussed with the patient > 35 min. Discussed plan of care with Dr. Murillo Code status: Full code PCP: Does not recall name. Plan discussed with: Patient, the patient agrees with the plan. Plan discussed with: Patient, Spouse My Orders Orders - MARY GRIFFIN RESIDENT Procedure Category Date Status Time Admit ADMIT 02/05/25 Transmitted 22:02 Code Status CODE 02/05/25 Transmitted 22:02 Vital Signs ANA ROSA 02/05/25 In Process 22:02 Review Orders With ANA ROSA 02/05/25 In Process Adm. 22:02 Bedrest With Bathroom ANA ROSA 02/05/25 In Process Privileg 22:02 Regular Diet DIET 02/06/25 Transmitted Breakfast Notify Md Of Changes ANA ROSA 02/05/25 In Process From Base 22:02 Advance Directive ANA ROSA 02/05/25 In Process 22:02 Patient Condition ORDERS 02/05/25 Transmitted 22:02 Allergies ANA ROSA 02/05/25 In Process 22:02 Pantoprazole Tablet PHA 02/06/25 In Process (Protonix Tablet) 10:00 Sodium Chloride 0.9% PHA 02/05/25 In Process 22:15 Blood Culture DANIELITO 02/05/25 Logged 22:02 Drug Screen LAB 02/05/25 Logged 22:02 Complete Blood Count LAB 02/06/25 Verified 04:00 Comprehensive LAB 02/06/25 Verified Metabolic Panel 04:00 Ondansetron Hcl PHA 02/06/25 In Process (Zofran) 02:00 Covid19 Antigen Vilma LAB 02/05/25 Logged Rapid Influenza A&B LAB 02/05/25 Logged 22:19 Common Visit Codes: 08857-IJGDTPX INP/OBS CARE (HIGH) Secondary Visit Codes: 26151-PUDWANXL CARE PLAN 30 MINUTES MARY GRIFFIN RESIDENT Feb 05, 2025 23:06
[2025-02-05 23:31] VITALS: BP 124/57; PULSE 66; RESP 17; TEMP 97.7; O2SAT 97
[2025-02-05] MEDS: BACLOFEN 10 MG TAB PO ONE (23:31)
[2025-02-06] VITALS (8 sets, daily range): BP systolic 109–123; BP diastolic 45–84; PULSE 56–100; RESP 12–21; TEMP 97.8–98.6; O2SAT 97–100
[2025-02-06 01:50] LABS: COVID19 ANTIGEN SOFIA FIA NEGATIVE (NEGATIVE)
[2025-02-06] MEDS ORDERED: ONDANSETRON HCL 4 MG/2 ML VIAL IM SCH (02:00)
[2025-02-06] MEDS: ONDANSETRON HCL 4 MG/2 ML VIAL IV PRN (02:18)
--- NOTE | 2025-02-06 06:39 | DVH ---
CHEST RADIOGRAPH Indication: R/O pulmonary conditions/ chest pain Technique: Single frontal view of the chest was obtained Comparison: CHEST XRAY 1 VIEW on DOS: 04/03/21 FINDINGS: Lines and Tubes: None Lungs: No focal consolidation. Pleura: No effusion. No pneumothorax. Cardiomediastinal contours: Unremarkable Bones: No acute osseous abnormality. IMPRESSION: 1. No acute cardiopulmonary disease.
[2025-02-06 06:51] LABS: Nucleated Red Blood Cells % 0.1 %
[2025-02-06 06:55] LABS: Hematocrit 30.7 % (36.0-46.0); Hemoglobin 10.1 g/dL (12.2-16.2); Mean Corpuscular Hemoglobin 25.0 pg (28.0-32.0); Mean Corpuscular Volume 76.2 fL (80.0-100.0)
[2025-02-06 06:58] LABS: Alanine Aminotransferase 11 U/L (7-40); Albumin 4.3 g/dL (3.2-4.8); Alkaline Phosphatase 70 U/L (46-116); Anion Gap 9 (5-15); BUN/Creatinine Ratio 14.3 (10.0-20.0); Blood Urea Nitrogen 9 mg/dL (9-23); Calcium 8.7 mg/dL (8.7-10.4); Carbon Dioxide 28 mmol/L (20-31); Chloride 107 mmol/L (98-107); Glucose 96 mg/dL (74-106); Potassium 3.9 mmol/L (3.5-5.1); Sodium 144 mmol/L (136-145)
[2025-02-06 06:59] LABS: Bilirubin, Total 0.4 mg/dL (0.2-1.0); Total Protein 6.7 g/dL (5.7-8.2)
--- NOTE | 2025-02-06 08:03 | ECG ---
[facility] Test Date: 2025-02-06 Test Time: 02:45:49 Pat Name: JAREK CHOU Department: [facility] ED Patient ID: [id number] Room: [address] [place] [address] Gender: F Case Hardener: JONELLE : 1980 Requested By: MARY GRIFFIN Order Number: [id number] Reading MD: Jonny Bui Measurements Intervals [place] Rate: 60 P: 67 WI: 160 QRS: 39 QRSD: 85 T: 27 QT: 425 QTc: 425 Interpretive Statements Sinus rhythm Baseline wander in lead(s) V6 Electronically Signed On 02-06-2025 22:09:54 PDT by Jonny Bui Please click the below link to view image of tracing.
[2025-02-06] MEDS: KETOROLAC TROMETH 30 MG/ML 1ML VIAL IV ONE (10:24)
[2025-02-06] MEDS: PANTOPRAZOLE 40 MG TAB PO SCH (10:28)
[2025-02-06] MEDS: NAPROXEN 500 MG TAB PO PRN (14:38)
--- NOTE | 2025-02-06 15:00 | DVHPNRES ---
Progress Note Date Seen: Feb 06, 2025 Resident Creating Document: TACHO ROD RESIDENT Medical Necessity Reason Pt with a Central, PICC or Fol: No Medical Necessity Reason Patient is a 44-year-old female with past medical history of pulmonary embolism in 2018, who presented to the ED with chief complaint of headache. Patient refers persistence of generalized headache for the last 2 weeks described as pulsatile, intensity of 10/10, radiating towards her neck, associated with nausea and photophobia. She states she was seen at [place], where she was diagnosed with migraines and a UTI, and was discharged with Reglan and cephalexin. due to persistence of symptoms, patient sought medical care. On evaluation in the ED, patient was in moderate distress. initial labs shows CBC and CMP within normal range. Head CT showed no acute intracranial findings. she was admitted for further workup and monitoring. Surgical: Tubal ligation Social: Denies drug use, tobacco use, and alcohol use Patient seen at bedside. Patient is AOx4, seem uncomfortable, states photophobia and headache persists, however it has decreased to a 7/10 in intensity. Currently denies fever, nausea, vomiting, changes in vision, tinnitus, chest pain, palpitations, and other symptoms. vitals have remained stable. Follow-up labs are within normal range. Due to history of pulmonary embolism and tachycardia, coagulation studies were ordered. D-dimer is less than 0.19. Due to persistence of pain, pain regimen has been adjusted. We will continue to monitor. Review of Systems: Constitutional: Denies weight loss, fever and chills. HEENT: Denies changes in vision and hearing. Respiratory: Denies shortness of breath and cough Cardiovascular: Denies chest discomfort or palpitations GI: Denies abdominal distention, abdominal pain, diarrhea : Denies dysuria and urinary frequency. Musculoskeletal: Refers neck pain Skin: Denies rash and pruritus. Neurological: Refers headache, denies dizziness, vision or hearing problems Objective vital signs Vital Sign Date Time Temp Pulse Resp B/P (MAP) Pulse Ox O2 Delivery O2 Flow Rate FiO2 02/06/25 13:00 67 113/45 (67) 98 02/06/25 09:00 17 02/06/25 07:30 98.7 98.7 02/06/25 07:30 Room Air* 0 21 medications Current Medications Medications Dose Ordered Sig/Hamilton Route Start Time Stop Time Status Last Admin Dose Admin Pantoprazole Sodium 40 mg DAILY PO 02/06/25 10:00 02/06/25 10:28 40 MG Acetaminophen 650 mg Q6HP PRN PO 02/05/25 22:45 Ondansetron HCl 4 mg Q4HPRN PRN IV 02/06/25 02:15 02/06/25 14:38 4 MG Naproxen 250 mg Q6HP PRN PO 02/06/25 11:45 02/06/25 14:38 250 MG Morphine Sulfate 2 mg Q6HPRN PRN IV 02/06/25 12:15 Examination General: Patient is uncomfortable, alert and oriented in person place and time. Patient following commands HEENT: Normocephalic, atraumatic, pupils are reactive, photophobia present, EOM intact, pink conjunctiva, pink moist mucous membrane, limited mobility of neck due pain, pain to palpation of trapezius muscles Respiratory/pulmonary: Bilateral chest expansion, Clear lungs bilaterally, vesicular murmurs present in almost all lung jones, no associated crackles or wheezes, no pain to palpation of chest wall Abdomen: Abdomen nondistended, normal bowel sounds, soft, no pain to palpation in any of the abdominal quadrants, no palpable masses. Extremities: no deformities, there is no peripheral edema present at the lower extremities, normal pulses Skin: No rashes or pruritus Neurological: Intact cranial nerves with no focal neurologic deficits laboratory and microbiology Laboratory Tests 02/06/25 06:00 Test 02/06/25 06:00 Range/Units Serum Glucose 96 74-106 mg/dL Problem List/Assessment/Plan Problem List/Assessment/Plan Assessment and plan Intractable headache secondary to migraine -Morphine 2 mg IV q6 h PRN -Naproxen 250 mg PO q6 h PRN -Acetaminophen 650 mg PO q6h PRN -Ketorolac 30 mg IV once -Zofran 4 mg IV q4h PRN Dehydration -NS 1500 mL once Ruled out meningitis History of PE Secondary hypercoagulable state due to above DVT prophylaxis: Ambulatory PUD prophylaxis: Protonix Case discussed with Dr. Yu. Goals of care discussed with the patient for over 30 minutes, she states she understands and agrees. Plan discussed with: Patient My Orders My Orders Orders - TACHO ROD Procedure Category Date Status Time Naproxen Tablet PHA 8/4/25 In Process (Naprosyn Tablet) 11:45 Morphine Sulfate PHA 02/06/25 In Process Injection 12:15 Date of Service: Feb 06, 2025 Billing Provider: ELIZABETH YU MD Common Visit Codes: [id number] INP/OBS CARE(HIGH) Secondary Visit Codes: [id number] CARE PLAN 30 MINUTES TACHO ROD RESIDENT Feb 06, 2025 15:00 ESPAÑAEVON RESIDENT Feb 06, 2025 15:21 ELIZABETH YU MD Feb 12, 2025 20:49
[2025-02-06] MEDS: ACETAMINOPHEN 325 MG TAB PO PRN (17:45)
[2025-02-06] MEDS: MORPHINE SULFATE INJ 2 MG/ml SYRG IV PRN (21:08)
[2025-02-07] VITALS (15 sets, daily range): BP systolic 98–133; BP diastolic 53–82; PULSE 57–68; RESP 14–18; TEMP 98–99.7; O2SAT 96–99
[2025-02-07 05:34] LABS: Hematocrit 31.7 % (36.0-46.0); Hemoglobin 10.3 g/dL (12.2-16.2); Mean Corpuscular Hemoglobin 24.9 pg (28.0-32.0); Mean Corpuscular Volume 76.7 fL (80.0-100.0); Nucleated Red Blood Cells % 0.3 %
[2025-02-07 05:39] LABS: Chloride 107 mmol/L (98-107); Potassium 3.8 mmol/L (3.5-5.1)
[2025-02-07 05:40] LABS: Sodium 141 mmol/L (136-145)
[2025-02-07 05:41] LABS: Anion Gap 8 (5-15); Calcium 8.8 mg/dL (8.7-10.4); Carbon Dioxide 26 mmol/L (20-31)
[2025-02-07 05:46] LABS: Blood Urea Nitrogen 11 mg/dL (9-23); Glucose 95 mg/dL (74-106)
[2025-02-07 05:53] LABS: BUN/Creatinine Ratio 13.9 (10.0-20.0)
--- NOTE | 2025-02-07 15:22 | DVH ---
PROCEDURE: Lumbar puncture (LP) - Diagnostic Procedural Personnel Attending physician(s): Lio Childs Fellow physician(s): None Resident physician(s): None Advanced practice provider(s): None Pre-procedure diagnosis: Headaches Post-procedure diagnosis: Same Indication: Other-headaches Additional clinical history: None Complications: No immediate complications. IMPRESSION: Image-guided lumbar puncture, yielding 8 mL of clear fluid. Plan: The patient tolerated the procedure well.The patient was transferred to the recovery area for an hour of observation. PROCEDURE SUMMARY: - Diagnostic lumbar puncture with fluoroscopic guidance - Additional procedure(s): None PROCEDURE DETAILS: Pre-procedure Consent: Informed consent for the procedure including risks, benefits and alternatives was obtained a nd time-out was performed prior to the procedure. Preparation: The site was prepared and draped using maximal sterile barrier technique including cutan eous antisepsis. Anesthesia/sedation Level of anesthesia/sedation: No sedation Anesthesia/sedation administered by: Not applicable Total intra-service sedation time (minutes): Not applicable Lumbar puncture The patient was placed in left lateral decubitus position. Local anesthesia was administered. Under image guidance, a spinal needle was advanced into the subarachnoid space using oblique interlaminar approach. Spinal needle: 22 gauge, 3.5 inch Interspace level: L1-L2 Opening CSF pressure: 15 cm H2O Closing CSF pressure: Not measured Volume of CSF removed (mL): 8 CSF fluid appearance: clear Closure The needle was removed and hemostasis was achieved with manual compression. A sterile bandage was juan ramon lied. Radiation Dose Fluoroscopy time (seconds ): 24 Reference air kerma (mGy ): 6 Kerma area product (Gy-cm2 ): 0.52 Not Used Additional Details Additional description of procedure: None Registry event: V /3 /g Device used: None Equipment details: None Unique Device Identifiers: Not available Specimens removed: None Estimated blood loss (mL): Less than 10 Standardized report: [email or web address] Attestation Signer name: Lio Childs I attest that I was present for the entire procedure . I reviewed the stored images and agree with th e report as written.
--- NOTE | 2025-02-07 15:44 | DVHPNRES ---
Progress Note Date Seen: Feb 07, 2025 Resident Creating Document: TACHO ROD RESIDENT Medical Necessity Reason Pt with a Central, PICC or Fol: No Subjective Review of Systems Patient is a 44-year-old female with past medical history of pulmonary embolism in 2018, who presented to the ED with chief complaint of headache. Patient refers persistence of generalized headache for the last 2 weeks described as pulsatile, intensity of 10/10, radiating towards her neck, associated with nausea and photophobia. She states she was seen at [place], where she was diagnosed with migraines and a UTI, and was discharged with Reglan and cephalexin. due to persistence of symptoms, patient sought medical care. On evaluation in the ED, patient was in moderate distress. initial labs shows CBC and CMP within normal range. Head CT showed no acute intracranial findings. she was admitted for further workup and monitoring. Patient seen at bedside. Patient is AOx4, seem uncomfortable, states headache persist with similar intensity as yesterday. Currently denies fever, nausea, vomiting, changes in vision, tinnitus, chest pain, palpitations, and other symptoms. Tmax of 99.7, however other vitals have remained stable. Follow-up labs are within normal range. Due to pain persistence, neurology consult has been placed. Patient went to lumbar puncture today with IR. Currently pending results. We will continue to monitor. Objective vital signs Vital Sign Date Time Temp Pulse Resp B/P (MAP) Pulse Ox O2 Delivery O2 Flow Rate FiO2 02/07/25 09:00 99.7 66 18 119/77 (91) 98 99.7 02/07/25 08:00 Room Air* 0 21 Total Intake and Output 02/06/25 02/06/25 02/07/25 15:00 23:00 07:00 Intake Total 175 ml Balance 175 ml medications Current Medications Medications Dose Ordered Sig/Hamilton Route Start Time Stop Time Status Last Admin Dose Admin Pantoprazole Sodium 40 mg DAILY PO 02/06/25 10:00 02/07/25 09:51 40 MG Acetaminophen 650 mg Q6HP PRN PO 02/05/25 22:45 02/06/25 17:45 650 MG Ondansetron HCl 4 mg Q4HPRN PRN IV 02/06/25 02:15 02/07/25 10:44 4 MG Naproxen 250 mg Q6HP PRN PO 02/06/25 11:45 02/07/25 10:45 250 MG Morphine Sulfate 2 mg Q6HPRN PRN IV 02/06/25 12:15 02/06/25 21:08 2 MG Examination General: Patient is uncomfortable, alert and oriented in person place and time. Patient following commands HEENT: Normocephalic, atraumatic, pupils are reactive, photophobia present, EOM intact, pink conjunctiva, pink moist mucous membrane, limited mobility of neck due pain, pain to palpation of trapezius muscles Respiratory/pulmonary: Bilateral chest expansion, Clear lungs bilaterally, vesicular murmurs present in almost all lung jones, no associated crackles or wheezes, no pain to palpation of chest wall Abdomen: Abdomen nondistended, normal bowel sounds, soft, no pain to palpation in any of the abdominal quadrants, no palpable masses. Extremities: no deformities, there is no peripheral edema present at the lower extremities, normal pulses Skin: No rashes or pruritus Neurological: Intact cranial nerves with no focal neurologic deficits laboratory and microbiology Laboratory Tests 02/07/25 05:13 Test 02/07/25 05:13 Range/Units Serum Glucose 95 74-106 mg/dL Microbiology Date/Time Source Procedure Growth Status 02/05/25 22:33 Blood Blood Culture - Preliminary NO GROWTH AFTER 24 HOURS OF INCUBATION. Resulted Problem List/Assessment/Plan Problem List/Assessment/Plan Assessment and plan Intractable headache secondary to migraine -Morphine 2 mg IV q6 h PRN -Naproxen 250 mg PO q6 h PRN -Acetaminophen 650 mg PO q6h PRN -Ketorolac 30 mg IV once -Zofran 4 mg IV q4h PRN -Neurology has been consulted Dehydration -NS 1500 mL once Rule out meningitis -Lumbar puncture today with IR History of PE DVT prophylaxis: Ambulatory PUD prophylaxis: Protonix Case discussed with Dr. Yu. Goals of care discussed with the patient for over 30 minutes, she states she understands and agrees. Plan discussed with: Patient Date of Service: Feb 07, 2025 Billing Provider: ELIZABETH YU MD Common Visit Codes: [id number] INP/OBS CARE(HIGH) TACHO ROD RESIDENT Feb 07, 2025 15:44 ELIZABETH YU MD Feb 12, 2025 20:50
--- NOTE | 2025-02-07 15:45 | DVH ---
PROCEDURE: Lumbar puncture (LP) - Diagnostic Procedural Personnel Attending physician(s): Lio Childs Fellow physician(s): None Resident physician(s): None Advanced practice provider(s): None Pre-procedure diagnosis: Headaches Post-procedure diagnosis: Same Indication: Other-headaches Additional clinical history: None Complications: No immediate complications. IMPRESSION: Image-guided lumbar puncture, yielding 8 mL of clear fluid. Plan: The patient tolerated the procedure well.The patient was transferred to the recovery area for an hour of observation. PROCEDURE SUMMARY: - Diagnostic lumbar puncture with fluoroscopic guidance - Additional procedure(s): None PROCEDURE DETAILS: Pre-procedure Consent: Informed consent for the procedure including risks, benefits and alternatives was obtained and time-out was performed prior to the procedure. Preparation: The site was prepared and draped using maximal sterile barrier technique including cutaneous antisepsis. Anesthesia/sedation Level of anesthesia/sedation: No sedation Anesthesia/sedation administered by: Not applicable Total intra-service sedation time (minutes): Not applicable Lumbar puncture The patient was placed in left lateral decubitus position. Local anesthesia was administered. Under image guidance, a spinal needle was advanced into the subarachnoid space using oblique interlaminar approach. Spinal needle: 22 gauge, 3.5 inch Interspace level: L1-L2 Opening CSF pressure: 15 cm H2O Closing CSF pressure: Not measured Volume of CSF removed (mL): 8 CSF fluid appearance: clear Closure The needle was removed and hemostasis was achieved with manual compression. A sterile bandage was applied. Radiation Dose Fluoroscopy time (seconds ): 24 Reference air kerma (mGy ): 6 Kerma area product (Gy-cm2 ): 0.52 Not Used Additional Details Additional description of procedure: None Registry event: V /3 /g Device used: None Equipment details: None Unique Device Identifiers: Not available Specimens removed: None Estimated blood loss (mL): Less than 10 Standardized report: [email or web address] Attestation Signer name: Lio Childs I attest that I was present for the entire procedure . I reviewed the stored images and agree with the report as written. IT HARDEN
--- NOTE | 2025-02-07 18:31 | DVHINCON2 ---
Date of service: Feb 07, [address] Logan Reason for Consultation Headache,? Migraine History of Present Illness Ms. Colmenares is a 44 years old right-handed female with a history of pulmonary emboli, she came to the [facility] on 02/05/2025 with a chief complaint of headache. At this time, she is alert and fully oriented, she provided the following history For about two weeks of time, she has bad nonprogressive squeezing global headache with associated photophobia, mild sonophobia, nausea, vomiting, but she denies associated focal weakness numbness. The headache worsens when she moves her head, but headache remained same when she is upright or supine in the bed, but she feels since moving around her when she is standing up. She also have pain and stiffness in the neck She has no history of headache She feels hot at home, T-max in the hospital, 99.7 WBC/HB/PLT/MCV, 02/07/2025: 5.8/10.3/311/76.7 CT head, 02/05/2025: No acute intracranial findings. Past Medical History Pulmonary emboli (2019) Past Surgical History Tubal ligation Family History: Alzheimer's disease G8 MOTHER Cerebrovascular accident (CVA) G8 FATHER Diabetes mellitus G8 MOTHER Hypercholesterolemia G8 MOTHER G8 FATHER Hypertension G8 MOTHER G8 FATHER Family History Hypertension, diabetes, dyslipidemia, heart disease, cancer, Alzheimer disease. No headache or migraine headache Social History She denies a history of tobacco smoke, alcohol or drug abuse Allergies: Coded Allergies: Nitrofurantoin (Verified Allergy, Severe, RASH, 09/24/22) Home Meds Reported Medications Vit W/ Ferrous Fumara () Tab, 1 OR, TAB 03/16/19 Review of Systems As above, the other systems are negative Vital Signs Vital Signs Date Time Temp Pulse Resp B/P (MAP) Pulse Ox O2 Delivery O2 Flow Rate FiO2 02/07/25 17:00 99.4 66 18 132/82 (99) 98 99.4 02/07/25 08:00 Room Air* 0 21 Physical Exam GENERAL EXAM: General: the patient is well developed and nourished. No acute distress. HEENT: Normocephalic, neck is supple, but she experiences pain in the neck when she bends neck, no carotid bruits. No mass. RESPIRATORY: Normal respiratory effort with symmetrical lung expansion. Lungs clear to auscultation. CARDIOVASCULAR: Regular rate and rhythm with no murmurs. S1, S2. ABDOMEN: Soft, nontender, normal bowel sound NEUROLOGICAL: MENTAL STATUS: Awake and alert. Oriented to person, place, time and general circumstances. Able to give personal history. SPEECH, LANGUAGE, HIGHER CORTICAL FUNCTION: no aphasia or dysathria. CRANIAL NERVES: #2: Intact visual jones to confrontation. The optic discs were sharp. #3,4,6: Pupils are equal, round and reactive. EOMs full and conjugate. No nystagmus. #5: Facial sensation intact in all three divisions bilaterally. Mandibular strength intact. #7: Facial muscles symmetrical and strength intact. #8: Hearing grossly normal to voice. #9,10: Uvula and soft palate rise in the midline. Swallow and voice are normal. #11: Trapezius and sternomastoid strength intact bilaterally. #12: Tongue midline. No fasciculations or atrophy. SENSATION: Sensation to touch and pinprick is normal. MOTOR: Normal tone in the upper and lower extremity. Normal muscle bulk. No fasciculations. No abnormal movements or posturing. Muscle strength of the major groups in the upper extremities is 5/5. Muscle strength of the major groups in the lower extremities is 3-4/5. REFLEXES: Deep tendon reflexes normal and symmetrical. No pathological reflexes. CEREBELLAR/COORDINATION: Finger to nose is normal bilaterally. GAIT/STATION: deferred. Labs/Diagnostic Data Labs Test 02/07/25 05:13 02/06/25 06:00 02/05/25 23:30 02/05/25 16:20 Range/Units White Blood Count 5.8 4.4-10.8 10^3/uL Red Blood Count 4.14 4.0-5.20 10^6/uL Hemoglobin 10.3 L 12.2-16.2 g/dL Hematocrit 31.7 L 36.0-46.0 % Mean Corpuscular Volume 76.7 L 80.0-100.0 fL Mean Corpuscular Hemoglobin 24.9 L 28.0-32.0 pg Mean Corpuscular Hemoglobin Concent 32.5 32.0-36.0 g/dL Red Cell Distribution Width 18.6 H 11.8-14.3 % Platelet Count 311 140-450 10^3/uL Mean Platelet Volume 8.6 6.9-10.8 fL Neutrophils (%) (Auto) 60.0 37.0-80.0 % Lymphocytes (%) (Auto) 30.4 10.0-50.0 % Monocytes (%) (Auto) 7.3 0.0-12.0 % Eosinophils (%) (Auto) 1.6 0.0-7.0 % Basophils (%) (Auto) 0.7 0.0-2.0 % Neutrophils # (Auto) 3.5 1.6-8.6 10 ^3/uL Lymphocytes # (Auto) 1.8 0.4-5.4 10 ^3/uL Monocytes # (Auto) 0.4 0-1.3 10 ^3/uL Eosinophils # (Auto) 0.1 0-0.8 10 ^3/uL Basophils # (Auto) 0 0-0.2 10 ^3/uL Nucleated Red Blood Cells 0.3 % Sodium Level 141 136-145 mmol/L Potassium Level 3.8 3.5-5.1 mmol/L Chloride Level 107 98-107 mmol/L Carbon Dioxide Level 26 20-31 mmol/L Anion Gap 8 5-15 Blood Urea Nitrogen 11 9-23 mg/dL Creatinine 0.79 0.550-1.02 mg/dL Glomerular Filtration Rate Calc 95 >90 mL/min BUN/Creatinine Ratio 13.9 10.0-20.0 Serum Glucose 95 74-106 mg/dL Calcium Level 8.8 8.7-10.4 mg/dL D-Dimer, Quantitative < 0.19 0.0-0.49 mg/L FEU Total Bilirubin 0.4 0.2-1.0 mg/dL Aspartate Amino Transferase (AST) 14 13-40 U/L Alanine Aminotransferase (ALT) 11 7-40 U/L Alkaline Phosphatase 70 46-116 U/L Total Protein 6.7 5.7-8.2 g/dL Albumin 4.3 3.2-4.8 g/dL Influenza Type A Antigen Negative Negative Influenza Type B Antigen Negative Negative SARS-CoV-2 Antigen (Rapid) Negative NEGATIVE Prothrombin Time 10.7 9.3-11.8 sec Prothrombin Time INR 1.01 0.9-1.15 Activated Partial Thromboplast Time 26.2 24.5-34.5 SEC Microbiology Date/Time Source Procedure Growth Status 02/05/25 22:33 Blood Blood Culture - Preliminary NO GROWTH AFTER 24 HOURS OF INCUBATION. Resulted Assessment New onset daily headache with unremarkable CT brain scan ? Intracranial infection/aseptic meningitis ? Rule out intracranial pathology Plan/Recommendation Monitoring Supportive treatment Telemetry MR head without A trial of IV fluids with normal saline, Decadron 10 mg IV daily, Reglan 15 mg t.i.d. More recommendation per clinical course Plan discussed with: Patient, Other DOMINIK LLANOS MD Feb 07, 2025 18:31
[2025-02-07] MEDS ORDERED: LORazepam 2MG/ML-1ML VIAL IV PRN (19:00)
[2025-02-07] MEDS: METOCLOPRAMIDE HCL 10 MG TAB PO SCH (21:46)
[2025-02-07] MEDS: SODIUM CHLORIDE 0.9% 1,000 ML IV SCH (21:46)
[2025-02-08] VITALS (7 sets, daily range): BP systolic 105–122; BP diastolic 58–77; PULSE 62–74; RESP 16–18; TEMP 97.8–98.4; O2SAT 97–99
[2025-02-08 06:17] LABS: Hemoglobin 10.9 g/dL (12.2-16.2); Nucleated Red Blood Cells % 0.0 %
[2025-02-08 06:19] LABS: Hematocrit 33.0 % (36.0-46.0); Mean Corpuscular Hemoglobin 25.4 pg (28.0-32.0); Mean Corpuscular Volume 76.8 fL (80.0-100.0)
[2025-02-08 06:27] LABS: Anion Gap 11 (5-15); Calcium 8.8 mg/dL (8.7-10.4); Carbon Dioxide 23 mmol/L (20-31); Chloride 105 mmol/L (98-107); Potassium 4.0 mmol/L (3.5-5.1); Sodium 139 mmol/L (136-145)
[2025-02-08 06:34] LABS: BUN/Creatinine Ratio 14.5 (10.0-20.0); Blood Urea Nitrogen 10 mg/dL (9-23); Glucose 149 mg/dL (74-106)
--- NOTE | 2025-02-08 16:45 | DVHPNRES ---
Progress Note Date Seen: Feb 08, 2025 Resident Creating Document: TACHO ROD RESIDENT Medical Necessity Reason Pt with a Central, PICC or Fol: No Subjective Review of Systems Patient is a 44-year-old female with past medical history of pulmonary embolism in 2018, who presented to the ED with chief complaint of headache. Patient refers persistence of generalized headache for the last 2 weeks described as pulsatile, intensity of 10/10, radiating towards her neck, associated with nausea and photophobia. She states she was seen at [place], where she was diagnosed with migraines and a UTI, and was discharged with Reglan and cephalexin. due to persistence of symptoms, patient sought medical care. On evaluation in the ED, patient was in moderate distress. initial labs shows CBC and CMP within normal range. Head CT showed no acute intracranial findings. she was admitted for further workup and monitoring. Patient seen at bedside. Patient is AO x4, states her headache has improved with intensity of 5/10, still presents some dizziness on standing, but denies further Emetic episodes. additionally states that neck stiffness has improved and now has more mobility. currently denies fever, nausea, vomiting, changes in vision, tinnitus, palpitations, and chest pain. Vitals have been stable. follow-up labs are within normal range. Patient was seen by Neurology who ordered MRI head without contrast, and recommended trial of IV fluids with normal saline, Decadron, and Reglan. Currently pending results of lumbar puncture. We will continue to monitor. Objective vital signs Vital Sign Date Time Temp Pulse Resp B/P (MAP) Pulse Ox O2 Delivery O2 Flow Rate FiO2 02/08/25 13:03 98.4 69 18 109/73 (85) 98 98.4 02/08/25 08:05 Room Air* 0 21 Total Intake and Output 02/07/25 02/07/25 02/08/25 15:00 23:00 07:00 Intake Total 200 ml 400 ml 410 ml Balance 200 ml 400 ml 410 ml medications Current Medications Medications Dose Ordered Sig/Hamilton Route Start Time Stop Time Status Last Admin Dose Admin Pantoprazole Sodium 40 mg DAILY PO 02/06/25 10:00 02/08/25 10:18 40 MG Acetaminophen 650 mg Q6HP PRN PO 02/05/25 22:45 02/06/25 17:45 650 MG Ondansetron HCl 4 mg Q4HPRN PRN IV 02/06/25 02:15 02/07/25 10:44 4 MG Naproxen 250 mg Q6HP PRN PO 02/06/25 11:45 02/08/25 10:32 250 MG Morphine Sulfate 2 mg Q6HPRN PRN IV 02/06/25 12:15 02/06/25 21:08 2 MG Sodium Chloride 1,000 ml @ 100 mls/hr Q10H IV 02/07/25 19:00 02/08/25 14:41 100 MLS/HR Dexamethasone Sodium Phosphate 10 mg/Dextrose 51 ml @ 204 mls/hr DAILY IV 02/08/25 10:00 02/08/25 10:18 204 MLS/HR Metoclopramide HCl 15 mg Q8HR PO 02/07/25 22:00 02/08/25 15:13 15 MG Lorazepam 1 mg ONCE PRN IV 02/07/25 19:00 Examination General: Patient is comfortable, alert and oriented in person place and time. Patient following commands HEENT: Normocephalic, atraumatic, pupils are reactive, photophobia present, EOM intact, pink conjunctiva, pink moist mucous membrane, improved mobility of neck due pain, no pain to palpation of trapezius muscles Respiratory/pulmonary: Bilateral chest expansion, Clear lungs bilaterally, vesicular murmurs present in almost all lung jones, no associated crackles or wheezes, no pain to palpation of chest wall Abdomen: Abdomen nondistended, normal bowel sounds, soft, no pain to palpation in any of the abdominal quadrants, no palpable masses. Extremities: no deformities, there is no peripheral edema present at the lower extremities, normal pulses Skin: No rashes or pruritus Neurological: Intact cranial nerves with no focal neurologic deficits laboratory and microbiology Laboratory Tests 02/08/25 05:16 Test 02/08/25 05:16 Range/Units Serum Glucose 149 H 74-106 mg/dL Microbiology Date/Time Source Procedure Growth Status 02/07/25 12:45 Cerebral Spinal Fluid CSF Culture & Gram Stain (Tube 2) M - Preliminary Resulted 02/05/25 22:33 Blood Blood Culture - Preliminary NO GROWTH AFTER 48 HOURS OF INCUBATION. Resulted Problem List/Assessment/Plan Problem List/Assessment/Plan Assessment and plan Intractable headache secondary to migraine -Morphine 2 mg IV q6 h PRN -Naproxen 250 mg PO q6 h PRN -Acetaminophen 650 mg PO q6h PRN -Ketorolac 30 mg IV once -Zofran 4 mg IV q4h PRN -Decadron 10 mg IV daily -Metoclopramide 15 mg Q 8 hours -Neurology: Ordered MRI head without contrast, and trial of IV fluids with normal saline, Decadron, and Reglan -pending MRI brain Dehydration -NS 1500 mL once Rule out meningitis -Lumbar puncture with IR 02/08/2025 -results of CSF studies: Preliminary cultures show no growth -blood cultures: Preliminary results showed no growth after 48 hours History of PE DVT prophylaxis: Ambulatory PUD prophylaxis: Protonix Case discussed with Dr. Yu. Goals of care discussed with the patient for over 30 minutes, she states she understands and agrees. Plan discussed with: Patient Date of Service: Feb 08, 2025 Billing Provider: ELIZABETH YU MD Common Visit Codes: [id number] INP/OBS CARE(HIGH) TACHO ROD RESIDENT Feb 08, 2025 16:45 ELIZABETH YU MD Feb 12, 2025 20:51
[2025-02-09] VITALS (8 sets, daily range): BP systolic 102–111; BP diastolic 55–65; PULSE 60–85; RESP 16–18; TEMP 97.8–98.3; O2SAT 98–100
[2025-02-09 06:06] LABS: Hematocrit 31.6 % (36.0-46.0); Hemoglobin 10.3 g/dL (12.2-16.2); Nucleated Red Blood Cells % 0.0 %
[2025-02-09 06:08] LABS: Mean Corpuscular Hemoglobin 25.1 pg (28.0-32.0); Mean Corpuscular Volume 76.8 fL (80.0-100.0)
[2025-02-09 06:25] LABS: Anion Gap 10 (5-15); Carbon Dioxide 25 mmol/L (20-31); Chloride 106 mmol/L (98-107); Potassium 3.7 mmol/L (3.5-5.1); Sodium 141 mmol/L (136-145)
[2025-02-09 06:26] LABS: Calcium 8.9 mg/dL (8.7-10.4)
[2025-02-09 06:31] LABS: BUN/Creatinine Ratio 11.8 (10.0-20.0); Glucose 102 mg/dL (74-106)
[2025-02-09 06:34] LABS: Blood Urea Nitrogen 8 mg/dL (9-23)
--- NOTE | 2025-02-09 10:26 | DVH ---
MRI BRAIN HEAD WO CONTRAST INDICATION: New onset daily headache EXAM DATE: 02/09/2025 09:39 AM COMPARISON: CT HEAD WITHOUT CONTRAST on DOS: 02/05/25, HEAD WITHOUT CONTRAST on DOS: 08/08/21 PROCEDURE: Using a 1.5 Ghada scanner, multisequence multiplanar imaging of the brain was obtained. FINDINGS: The brainshows normal morphology and signal characteristics. No abnormal T2 hyperintensity, diffusion restriction, or susceptibility hypointensity is present. The ventricles are normal in size . The midline structures are intact. The major intracranial flow voids are present. The aerated space s are normal. The orbital contents and extracranial soft tissues appear normal. IMPRESSION: No acute abnormal MRI findings of the brain.
--- NOTE | 2025-02-09 18:56 | DVHPNRES ---
Progress Note Date Seen: Feb 09, 2025 Resident Creating Document: TACHO ROD RESIDENT Medical Necessity Reason Pt with a Central, PICC or Fol: No Subjective Review of Systems Patient is a 44-year-old female with past medical history of pulmonary embolism in 2018, who presented to the ED with chief complaint of headache. Patient refers persistence of generalized headache for the last 2 weeks described as pulsatile, intensity of 10/10, radiating towards her neck, associated with nausea and photophobia. She states she was seen at [place], where she was diagnosed with migraines and a UTI, and was discharged with Reglan and cephalexin. due to persistence of symptoms, patient sought medical care. On evaluation in the ED, patient was in moderate distress. initial labs shows CBC and CMP within normal range. Head CT showed no acute intracranial findings. she was admitted for further workup and monitoring. Patient seen at bedside. Patient is AOx4, states her headache continues to improve currently 3/10, neck stiffness has resolved, still refers some dizziness upon standing but it too has improved. Currently denies fever, nausea, vomiting, changes in vision, tinnitus, palpitations, and chest pain. Vitals have been stable. Follow-up labs show WBCs 12.5, would be associated to IV steroids, otherwise within normal range. Blood cultures are currently negative 72 hours, CSF preliminary cultures show no growth. Brain MRI shows no acute abnormal MRI findings of the brain. We will continue to monitor. Objective vital signs Vital Sign Date Time Temp Pulse Resp B/P (MAP) Pulse Ox O2 Delivery O2 Flow Rate FiO2 02/09/25 17:00 97.8 69 18 111/65 (80) 99 97.8 02/09/25 08:00 Room Air* 0 21 Total Intake and Output 02/08/25 02/08/25 02/09/25 15:00 23:00 07:00 Intake Total 450 ml 425 ml Balance 450 ml 425 ml medications Current Medications Medications Dose Ordered Sig/Hamilton Route Start Time Stop Time Status Last Admin Dose Admin Pantoprazole Sodium 40 mg DAILY PO 02/06/25 10:00 02/09/25 10:46 40 MG Acetaminophen 650 mg Q6HP PRN PO 02/05/25 22:45 02/09/25 10:47 650 MG Ondansetron HCl 4 mg Q4HPRN PRN IV 02/06/25 02:15 02/07/25 10:44 4 MG Naproxen 250 mg Q6HP PRN PO 02/06/25 11:45 02/08/25 21:21 250 MG Morphine Sulfate 2 mg Q6HPRN PRN IV 02/06/25 12:15 02/06/25 21:08 2 MG Sodium Chloride 1,000 ml @ 100 mls/hr Q10H IV 02/07/25 19:00 02/09/25 11:00 100 MLS/HR Dexamethasone Sodium Phosphate 10 mg/Dextrose 51 ml @ 204 mls/hr DAILY IV 02/08/25 10:00 02/09/25 10:46 204 MLS/HR Metoclopramide HCl 15 mg Q8HR PO 02/07/25 22:00 02/09/25 14:11 15 MG Lorazepam 1 mg ONCE PRN IV 02/07/25 19:00 Examination General: Patient is uncomfortable, alert and oriented in person place and time. Patient following commands HEENT: Normocephalic, atraumatic, pupils are reactive, photophobia present, EOM intact, pink conjunctiva, pink moist mucous membrane, normal mobility of neck, no more pain on palpation to trapezius Respiratory/pulmonary: Bilateral chest expansion, Clear lungs bilaterally, vesicular murmurs present in almost all lung jones, no associated crackles or wheezes, no pain to palpation of chest wall Cardiovascular: Normal RRR, normal S1 and S2 Abdomen: Abdomen nondistended, normal bowel sounds, soft, no pain to palpation in any of the abdominal quadrants, no palpable masses. Extremities: no deformities, there is no peripheral edema present at the lower extremities, normal pulses Skin: No rashes or pruritus Neurological: Intact cranial nerves with no focal neurologic deficits laboratory and microbiology Laboratory Tests 02/09/25 05:20 Test 02/09/25 05:20 Range/Units Serum Glucose 102 74-106 mg/dL Microbiology Date/Time Source Procedure Growth Status 02/07/25 12:45 Cerebral Spinal Fluid CSF Culture & Gram Stain (Tube 2) M - Preliminary Resulted 02/05/25 22:33 Blood Blood Culture - Preliminary NO GROWTH AFTER 72 HOURS OF INCUBATION. Resulted Problem List/Assessment/Plan Problem List/Assessment/Plan Assessment and Plan Intractable headache secondary to migraine -Morphine 2 mg IV q6 h PRN -Naproxen 250 mg PO q6 h PRN -Acetaminophen 650 mg PO q6h PRN -Ketorolac 30 mg IV once -Zofran 4 mg IV q4h PRN -Neurology: who ordered MRI head without contrast, and recommended trial of IV fluids with normal saline, Decadron, and Reglan -Decadron 10 mg IV daily -Reglan 15 mg tid Dehydration -NS 1500 mL once Rule out meningitis -Lumbar puncture IR -CSF preliminary cultures show no growth -Blood cultures show no growth at 72 hours History of PE DVT prophylaxis: Ambulatory PUD prophylaxis: Protonix 40 mg PO Case discussed with Dr. Yu. Goals of care discussed with the patient for over 30 minutes, she states she understands and agrees. Plan discussed with: Patient Dietary Evaluation Review Comments: Pain medication side-effect review Advance to regular Diet if medically feasible. Expected Outcomes/Goals: less headache and GI symptoms Date of Service: Feb 09, 2025 Billing Provider: ELIZABETH YU MD Common Visit Codes: [id number] INP/OBS CARE(HIGH) TACHO ROD RESIDENT Feb 09, 2025 18:56 ELIZABETH YU MD Feb 12, 2025 20:51
[2025-02-10] VITALS (8 sets, daily range): BP systolic 103–128; BP diastolic 46–70; PULSE 55–66; RESP 16–21; TEMP 96.7–98.3; O2SAT 98–99
[2025-02-10 07:29] LABS: Hematocrit 31.2 % (36.0-46.0); Hemoglobin 10.2 g/dL (12.2-16.2); Mean Corpuscular Hemoglobin 25.3 pg (28.0-32.0); Mean Corpuscular Volume 77.3 fL (80.0-100.0); Nucleated Red Blood Cells % 0.0 %
[2025-02-10 07:30] LABS: Anion Gap 9 (5-15); Carbon Dioxide 26 mmol/L (20-31); Chloride 106 mmol/L (98-107); Potassium 3.7 mmol/L (3.5-5.1); Sodium 141 mmol/L (136-145)
[2025-02-10 07:31] LABS: Calcium 8.8 mg/dL (8.7-10.4)
[2025-02-10 07:36] LABS: BUN/Creatinine Ratio 14.7 (10.0-20.0); Blood Urea Nitrogen 10 mg/dL (9-23); Glucose 90 mg/dL (74-106)
--- NOTE | 2025-02-10 16:18 | DVHPNRES ---
Progress Note Date Seen: Feb 10, 2025 Resident Creating Document: TACHO ROD RESIDENT Medical Necessity Reason Pt with a Central, PICC or Fol: No Subjective Review of Systems Patient is a 44-year-old female with past medical history of pulmonary embolism in 2018, who presented to the ED with chief complaint of headache. Patient refers persistence of generalized headache for the last 2 weeks described as pulsatile, intensity of 10/10, radiating towards her neck, associated with nausea and photophobia. She states she was seen at [place], where she was diagnosed with migraines and a UTI, and was discharged with Reglan and cephalexin. due to persistence of symptoms, patient sought medical care. On evaluation in the ED, patient was in moderate distress. initial labs shows CBC and CMP within normal range. Head CT showed no acute intracranial findings. she was admitted for further workup and monitoring. Patient seen at bedside. Patient is AOx4, states her headache has improved currently 2/10, neck stiffness has resolved, dizziness upon standing, but states that she has been able to ambulate around her room more with minimal difficulty. Currently denies fever, nausea, vomiting, changes in vision, tinnitus, palpitations, and chest pain. Vitals have been stable. follow-up labs show leukocytosis, however this is possibly due to steroids use and is currently down trending. Preliminary blood cultures are negative at 72 hours of growth and CSF cultures show no growth. Possible discharge tomorrow. Objective vital signs Vital Sign Date Time Temp Pulse Resp B/P (MAP) Pulse Ox O2 Delivery O2 Flow Rate FiO2 02/10/25 13:15 96.8 57 18 106/46 (66) 99 96.8 02/10/25 08:00 Room Air* 0 21 Total Intake and Output 02/09/25 02/09/25 02/10/25 15:00 23:00 07:00 Intake Total 600 ml 400 ml Balance 600 ml 400 ml medications Current Medications Medications Dose Ordered Sig/Hamilton Route Start Time Stop Time Status Last Admin Dose Admin Pantoprazole Sodium 40 mg DAILY PO 02/06/25 10:00 02/10/25 08:56 40 MG Acetaminophen 650 mg Q6HP PRN PO 02/05/25 22:45 02/09/25 21:36 650 MG Ondansetron HCl 4 mg Q4HPRN PRN IV 02/06/25 02:15 02/07/25 10:44 4 MG Naproxen 250 mg Q6HP PRN PO 02/06/25 11:45 02/10/25 16:00 250 MG Morphine Sulfate 2 mg Q6HPRN PRN IV 02/06/25 12:15 02/06/25 21:08 2 MG Sodium Chloride 1,000 ml @ 100 mls/hr Q10H IV 02/07/25 19:00 02/10/25 12:13 100 MLS/HR Dexamethasone Sodium Phosphate 10 mg/Dextrose 51 ml @ 204 mls/hr DAILY IV 02/08/25 10:00 02/10/25 08:56 204 MLS/HR Metoclopramide HCl 15 mg Q8HR PO 02/07/25 22:00 02/10/25 15:46 15 MG Lorazepam 1 mg ONCE PRN IV 02/07/25 19:00 Examination General: Patient is uncomfortable, alert and oriented in person place and time. Patient following commands HEENT: Normocephalic, atraumatic, pupils are reactive, photophobia present, EOM intact, pink conjunctiva, pink moist mucous membrane, normal mobility of neck, no pain on palpation of neck Respiratory/pulmonary: Bilateral chest expansion, Clear lungs bilaterally, vesicular murmurs present in almost all lung jones, no associated crackles or wheezes, no pain to palpation of chest wall Cardiovascular: Normal RRR, normal S1 and S2 Abdomen: Abdomen nondistended, normal bowel sounds, soft, no pain to palpation in any of the abdominal quadrants, no palpable masses. Extremities: no deformities, there is no peripheral edema present at the lower extremities, normal pulses Skin: No rashes or pruritus Neurological: Intact cranial nerves with no focal neurologic deficits laboratory and microbiology Laboratory Tests 02/10/25 06:00 Test 02/10/25 06:00 Range/Units Serum Glucose 90 74-106 mg/dL Microbiology Date/Time Source Procedure Growth Status 02/07/25 12:45 Cerebral Spinal Fluid CSF Culture & Gram Stain (Tube 2) M - Preliminary Resulted 02/05/25 22:33 Blood Blood Culture - Preliminary NO GROWTH AFTER 72 HOURS OF INCUBATION. Resulted Problem List/Assessment/Plan Problem List/Assessment/Plan Assessment and Plan Intractable headache secondary to migraine -Morphine 2 mg IV q6 h PRN -Naproxen 250 mg PO q6 h PRN -Acetaminophen 650 mg PO q6h PRN -Ketorolac 30 mg IV once -Zofran 4 mg IV q4h PRN -Neurology: who ordered MRI head without contrast, and recommended trial of IV fluids with normal saline, Decadron, and Reglan -Decadron 10 mg IV daily -Reglan 15 mg tid - MRI brain: No acute abnormal MRI findings of the brain Dehydration -NS 1500 mL once Rule out meningitis -Lumbar puncture IR -CSF preliminary cultures show no growth -Blood cultures show no growth at 72 hours History of PE DVT prophylaxis: Ambulatory PUD prophylaxis: Protonix 40 mg PO Case discussed with Dr. Yu. Goals of care discussed with the patient for over 30 minutes, she states she understands and agrees. Plan discussed with: Patient Dietary Evaluation Review Comments: Pain medication side-effect review Advance to regular Diet if medically feasible. Expected Outcomes/Goals: less headache and GI symptoms Date of Service: Feb 10, 2025 Billing Provider: ELIZABETH YU MD Common Visit Codes: [id number] INP/OBS CARE(MOD) TACHO ROD RESIDENT Feb 10, 2025 16:18 ELIZABETH YU MD Feb 12, 2025 20:52
[2025-02-11 01:00] VITALS: BP 109/60; PULSE 56; RESP 16; TEMP 98.2; O2SAT 100
[2025-02-11 05:00] VITALS: BP 121/56; PULSE 54; RESP 14; TEMP 98.4; O2SAT 99
[2025-02-11 07:19] LABS: Calcium 9.2 mg/dL (8.7-10.4); Chloride 104 mmol/L (98-107); Potassium 3.9 mmol/L (3.5-5.1); Sodium 140 mmol/L (136-145)
[2025-02-11 07:20] LABS: Anion Gap 10 (5-15); Carbon Dioxide 26 mmol/L (20-31)
[2025-02-11 07:22] LABS: Nucleated Red Blood Cells % 0.1 %
[2025-02-11 07:24] LABS: Hematocrit 33.4 % (36.0-46.0); Hemoglobin 10.8 g/dL (12.2-16.2); Mean Corpuscular Hemoglobin 24.9 pg (28.0-32.0); Mean Corpuscular Volume 76.8 fL (80.0-100.0)
[2025-02-11 07:25] LABS: BUN/Creatinine Ratio 10.1 (10.0-20.0); Glucose 88 mg/dL (74-106)
[2025-02-11 07:27] LABS: Blood Urea Nitrogen 7 mg/dL (9-23)
[2025-02-11 08:00] VITALS: PULSE 62; RESP 17
[2025-02-11 08:50] LABS: Anisocytosis Slight
[2025-02-11 09:00] VITALS: BP 105/67; PULSE 79; RESP 16; TEMP 97.8; O2SAT 96
[2025-02-11] MEDS ORDERED: ESOM40CA39 PO (11:48)
[2025-02-11 13:03] VITALS: BP 130/70; PULSE 68; RESP 18; TEMP 36.6; O2SAT 96
--- NOTE | 2025-02-11 15:06 | DVHDSRES ---
Discharge Summary Date of Admission Resident Creating Document: TACHO ROD RESIDENT Feb 05, 2025 at 22:02 Date of Discharge: Feb 11, 2025 Admitting Diagnosis Migraine Labs/Diagnostic Data: Laboratory Results Test 02/11/25 05:45 02/06/25 06:00 02/05/25 23:30 02/05/25 16:20 White Blood Count 11.1 10^3/uL (4.4-10.8) Red Blood Count 4.35 10^6/uL (4.0-5.20) Hemoglobin 10.8 g/dL (12.2-16.2) Hematocrit 33.4 % (36.0-46.0) Mean Corpuscular Volume 76.8 fL (80.0-100.0) Mean Corpuscular Hemoglobin 24.9 pg (28.0-32.0) Mean Corpuscular Hemoglobin Concent 32.5 g/dL (32.0-36.0) Red Cell Distribution Width 19.8 % (11.8-14.3) Platelet Count 324 10^3/uL (140-450) Mean Platelet Volume 9.4 fL (6.9-10.8) Neutrophils (%) (Auto) 69.8 % (37.0-80.0) Lymphocytes (%) (Auto) 22.2 % (10.0-50.0) Monocytes (%) (Auto) 7.4 % (0.0-12.0) Eosinophils (%) (Auto) 0.3 % (0.0-7.0) Basophils (%) (Auto) 0.3 % (0.0-2.0) Neutrophils # (Auto) 7.8 10 ^3/uL (1.6-8.6) Lymphocytes # (Auto) 2.5 10 ^3/uL (0.4-5.4) Monocytes # (Auto) 0.8 10 ^3/uL (0-1.3) Eosinophils # (Auto) 0 10 ^3/uL (0-0.8) Basophils # (Auto) 0 10 ^3/uL (0-0.2) Nucleated Red Blood Cells 0.1 % Platelet Estimate Adequate Anisocytosis (manual) Slight Microcytosis Slight Sodium Level 140 mmol/L (136-145) Potassium Level 3.9 mmol/L (3.5-5.1) Chloride Level 104 mmol/L (98-107) Carbon Dioxide Level 26 mmol/L (20-31) Anion Gap 10 (5-15) Blood Urea Nitrogen 7 mg/dL (9-23) Creatinine 0.69 mg/dL (0.550-1.02) Glomerular Filtration Rate Calc 110 mL/min (>90) BUN/Creatinine Ratio 10.1 (10.0-20.0) Serum Glucose 88 mg/dL (74-106) Calcium Level 9.2 mg/dL (8.7-10.4) D-Dimer, Quantitative < 0.19 mg/L FEU (0.0-0.49) Total Bilirubin 0.4 mg/dL (0.2-1.0) Aspartate Amino Transferase (AST) 14 U/L (13-40) Alanine Aminotransferase (ALT) 11 U/L (7-40) Alkaline Phosphatase 70 U/L (46-116) Total Protein 6.7 g/dL (5.7-8.2) Albumin 4.3 g/dL (3.2-4.8) Influenza Type A Antigen Negative (Negative) Influenza Type B Antigen Negative (Negative) SARS-CoV-2 Antigen (Rapid) Negative (NEGATIVE) Prothrombin Time 10.7 sec (9.3-11.8) Prothrombin Time INR 1.01 (0.9-1.15) Activated Partial Thromboplast Time 26.2 SEC (24.5-34.5) Other Laboratory Tests 02/11/25 05:45 Brief Hx & Hospital Course: Patient is a 44-year-old female with past medical history of pulmonary embolism in 2018, who presented to the ED with chief complaint of headache. Patient refers persistence of generalized headache for the last 2 weeks described as pulsatile, intensity of 10/10, radiating towards her neck, associated with nausea and photophobia. She states she was seen at [place], where she was diagnosed with migraines and a UTI, and was discharged with Reglan and cephalexin. due to persistence of symptoms, patient sought medical care. On evaluation in the ED, patient was in moderate distress. initial labs shows CBC and CMP within normal range. Head CT showed no acute intracranial findings. she was admitted for further workup and monitoring. On admission, headache persisted, patient was found to have photophobia and neck stiffness, Kernig and Brudzinski signs were negative. Blood cultures were subsequently taken. Patient was evaluated by Neurology who recommended MRI of the brain, and a trial of IV fluids with normal saline, Decadron 10 mg IV daily, and Reglan 15 mg t.i.d.. MRI of the brain showed no acute abnormal findings. Patient was taken for a lumbar puncture, which she tolerated. Patient continued to progress favorably, with decreasing headache intensity and neck stiffness. On evaluation today, patient states that her headache and neck stiffness have dissolved, her dizziness has greatly improved, she has been able to tolerate oral diet and ambulate around her room without difficulty. Vital signs have been stable. Labs are within normal range. Blood cultures are negative at 5 days of growth and CSF cultures showed no growth. She is considered stable for discharge with appointment in the discharge clinic for follow-up. All recommendations have been thoroughly explained. She states she understands and agrees. Physical Exam: General: Patient is comfortable, alert and oriented in person place and time. Patient following commands HEENT: Normocephalic, atraumatic, pupils are reactive, photophobia present, EOM intact, pink conjunctiva, pink moist mucous membrane, normal mobility of neck, no pain on palpation of neck Respiratory/pulmonary: Bilateral chest expansion, Clear lungs bilaterally, vesicular murmurs present in almost all lung jones, no associated crackles or wheezes, no pain to palpation of chest wall Cardiovascular: Normal RRR, normal S1 and S2 Abdomen: Abdomen nondistended, normal bowel sounds, soft, no pain to palpation in any of the abdominal quadrants, no palpable masses. Extremities: no deformities, there is no peripheral edema present at the lower extremities, normal pulses Skin: No rashes or pruritus Neurological: Intact cranial nerves with no focal neurologic deficits Case discussed with Dr. Miller. Goals of care discussed with the patient for over 35 minutes. Consults/Reason for consult Neurology was consulted for evaluation of migraine/possible meningitis IR was consulted for lumbar puncture Operations or Procedures CT HEAD WITHOUT CONTRAST CLINICAL HISTORY: headache COMPARISON: HEAD WITHOUT CONTRAST on DOS: 08/08/21 TECHNIQUE: Noncontrast CT head was performed. Coronal MPR images were generated. CTDI/ DLP = 50.24 / 803.84. Dose reduction technique with one or more of the following methods was performed: Automated exposure control, adjustment of the mA and/or kV according to patient size, use of iterative reconstruction technique. FINDINGS: No evidence of acute intracranial hemorrhage. No mass effect. No extra-axial collections of fluid or blood. The brain is normal in attenuation. The ventricles and sulci are normal in size for age. Clear basal cisterns. The calvarium is intact. The soft tissues are unremarkable. The paranasal sinuses and mastoid air cells are clear. IMPRESSION: 1. No acute intracranial findings. CHEST RADIOGRAPH Indication: R/O pulmonary conditions/ chest pain Technique: Single frontal view of the chest was obtained Comparison: CHEST XRAY 1 VIEW on DOS: 04/03/21 FINDINGS: Lines and Tubes: None Lungs: No focal consolidation. Pleura: No effusion. No pneumothorax. Cardiomediastinal contours: Unremarkable Bones: No acute osseous abnormality. IMPRESSION: 1. No acute cardiopulmonary disease. PROCEDURE: Lumbar puncture (LP) - Diagnostic Procedural Personnel Attending physician(s): Lio Childs Fellow physician(s): None Resident physician(s): None Advanced practice provider(s): None Pre-procedure diagnosis: Headaches Post-procedure diagnosis: Same Indication: Other-headaches Additional clinical history: None Complications: No immediate complications. IMPRESSION: Image-guided lumbar puncture, yielding 8 mL of clear fluid. Plan: The patient tolerated the procedure well.The patient was transferred to the recovery area for an hour of observation. PROCEDURE SUMMARY: - Diagnostic lumbar puncture with fluoroscopic guidance - Additional procedure(s): None PROCEDURE DETAILS: Pre-procedure Consent: Informed consent for the procedure including risks, benefits and alternatives was obtained and time-out was performed prior to the procedure. Preparation: The site was prepared and draped using maximal sterile barrier technique including cutaneous antisepsis. Anesthesia/sedation Level of anesthesia/sedation: No sedation Anesthesia/sedation administered by: Not applicable Total intra-service sedation time (minutes): Not applicable Lumbar puncture The patient was placed in left lateral decubitus position. Local anesthesia was administered. Under image guidance, a spinal needle was advanced into the subarachnoid space using oblique interlaminar approach. Spinal needle: 22 gauge, 3.5 inch Interspace level: L1-L2 Opening CSF pressure: 15 cm H2O Closing CSF pressure: Not measured Volume of CSF removed (mL): 8 CSF fluid appearance: clear Closure The needle was removed and hemostasis was achieved with manual compression. A sterile bandage was applied. Radiation Dose Fluoroscopy time (seconds ): 24 Reference air kerma (mGy ): 6 Kerma area product (Gy-cm2 ): 0.52 Not Used Additional Details Additional description of procedure: None Registry event: V /3 /g Device used: None Equipment details: None Unique Device Identifiers: Not available Specimens removed: None Estimated blood loss (mL): Less than 10 Standardized report: [email or web address] Attestation Signer name: Lio Childs I attest that I was present for the entire procedure . I reviewed the stored images and agree with the report as written. MRI BRAIN HEAD WO CONTRAST INDICATION: New onset daily headache EXAM DATE: 02/09/2025 09:39 AM COMPARISON: CT HEAD WITHOUT CONTRAST on DOS: 02/05/25, HEAD WITHOUT CONTRAST on DOS: 08/08/21 PROCEDURE: Using a 1.5 Ghada scanner, multisequence multiplanar imaging of the brain was obtained. FINDINGS: The brainshows normal morphology and signal characteristics. No abnormal T2 hyperintensity, diffusion restriction, or susceptibility hypointensity is present. The ventricles are normal in size. The midline structures are intact. The major intracranial flow voids are present. The aerated spaces are normal. The orbital contents and extracranial soft tissues appear normal. IMPRESSION: No acute abnormal MRI findings of the brain. Condition at Discharge: Stable Final Diagnosis/Problems List Complex Migraine Intractable headache secondary to migraine Dehydration Questionable aseptic meningitis History of PE Discharge Disposition: Home Discharge Instruct/Medications Diet: Regular Activity: No Restrictions, As Tolerated Follow Up/Referral: Follow up in discharge clinic in 1 week Follow up with PCP in 1-2 weeks Medications: Nexium Continue home medications Scheduled PRN Esomeprazole Magnesium Trihydr (Nexium), 40 MG PO DAILYP PRN Miscellaneous Medications Vit W/ Ferrous Fumara (), 1 OR, (Reported) Discharge Statement: "Patient was advised to return to the ER or call 911 if any headaches, dizziness, shortness of breath, chest pain, abdominal pain, bleeding, fevers, or worsening of medical condition. Patient was counseled about treatment plan, medications, possible side effects, patientverbalized understanding. All questions were answered to the best of my ability. This discharge took greater then 30 minutes in planning, reviewing documentation, counseling the patient, and discussing with other team members." ASSESSMENT ASSESSMENT Assessment Complex Migraine Date of Service: Feb 11, 2025 Billing Provider: LESLIE MILLER MD Common Visit Codes: 01196-UYU/OBS DISCH DAY >30min ROD,CAROLINA RESIDENT Feb 11, 2025 15:06 LESLIE MILLER MD Feb 11, 2025 19:50
== END 2025-02-11 13:34 | disposition home or self-care (01) | DRG 54 ==
LOC: ER 12:42 → OVERFLOW 22:02 → EAST 02-06 22:52
PROVIDERS: ADMIT Internal Medicine Geriatric Medicine; ATTEND Internal Medicine Geriatric Medicine
PROC: 009U3ZX Drainage of Spinal Canal, Percutaneous Approach, Diagnostic (ICD-10-PCS; principal; 2025-02-07)
PROC: B01BZZZ Fluoroscopy of Spinal Cord (ICD-10-PCS; 2025-02-07)
DX: G43.909 Migraine, unspecified, not intractable, without status migrainosus (principal); G03.0 Nonpyogenic meningitis; E86.0 Dehydration; Z20.822 Contact with and (suspected) exposure to COVID-19; G44.209 Tension-type headache, unspecified, not intractable; Z82.0 Family history of epilepsy and other diseases of the nervous system; Z82.3 Family history of stroke; Z82.49 Family history of ischemic heart disease and other diseases of the circulatory system; Z83.3 Family history of diabetes mellitus; Z86.711 Personal history of pulmonary embolism; Z88.1 Allergy status to other antibiotic agents
CPT/HCPCS: 36415; 62328; 70450; 70551; 71045; 80048; 80053; 85025; 85379; 85610; 85730; 87040; 87070; 87426; 87804; 93005; 99152; G0378; J1100; J2405; J7060; Q0162